=== PATIENT | female | born 1945 | race Caucasian/White ===

== ENCOUNTER → 2019-12-27 11:46 | Outpatient (CLI) | payer MEDICARE, SELFPAY ==
[2017-06-02 14:13] VITALS: BMI 34.2
--- NOTE | 2019-12-27 12:00 | RAD_ITS ---
STUDY: X-RAY CHEST REASON FOR EXAM: Female, 74 years old. Cough TECHNIQUE: PA and lateral views of the chest. COMPARISON: Comparison is made with prior study dated June 02, 2017. FINDINGS: Minimal increased markings at the lung bases suggestive of mild scarring. There is no demonstrated pleural abnormality. Normal size heart. Normal mediastinum and enrike. Normal visualized pulmonary arteries. There is atherosclerotic calcification of the aortic arch with tortuosity. There are diffuse degenerative changes of the visualized thoracic spine. Normal visualized ribs, clavicles, and shoulders. There is no demonstrated abnormality of the visualized soft tissue structures of the upper abdomen. RAD/Chest PA and Lateral IMPRESSION: Mild scarring at the lung bases. Electronically Signed: Samy Bernardo, at 15:48 EDT , Service support ,
--- NOTE | 2019-12-27 12:00 | RAD_ITS ---
STUDY: X-RAY - ABDOMEN/PELVIS REASON FOR EXAM: Female, 74 years old. Mid abdomen pain TECHNIQUE: AP supine and upright views of the abdomen and pelvis. COMPARISON: None. FINDINGS: Normal visualized lung bases. There is an abundance of fecal material throughout the colon. There is no demonstrated free abdominal air. The visualized liver, spleen and kidneys are grossly normal in size and morphology. Normal soft tissue structures. There are diffuse degenerative changes of the visualized lumbar spine. RAD/Abd Inc Decub and/or Erect IMPRESSION: Large amount of fecal material is seen in the colon Electronically Signed: Samy Bernardo, at 15:45 EDT , Service support ,
== END ==
PROVIDERS: PCP Internal Medicine; Referring Provider Internal Medicine; Visit Provider Internal Medicine
DX: R05 Cough (principal); R10.84 Generalized abdominal pain
CPT/HCPCS: 71046; 74019

== ENCOUNTER → 2021-12-28 | Outpatient (CLI) | payer MEDICARE, SELFPAY ==
[2021-12-28 11:40] LABS: Absolute Lymphocyte Count 1.34 X10^3/uL (0.83-4.51); Absolute Neutrophil Count 3.6 X10^3/uL (2.0-7.7); Basophil# 0.03 X10^3/uL; Basophil% 0.5 % (0-1); Eosinophil# 0.31 X10^3/uL; Eosinophils% 5.3 % (0-5); Hemoglobin 9.9 g/dL (12.0-15.0); Lymphocyte # 1.34 X10^3/ul (0.83-4.51); Mean Corp Hgb Conc 31.9 g/dL (32-36); Mean Corpuscular Hgb 28.9 pg (27.0-32.0); Mean Corpuscular Volume 90.6 fL (81-99); Mean Platelet Vol. 9.7 fl (6.2-12.0); Monocyte# 0.54 X10^3/uL; Monocyte% 9.3 % (0-10); NRBC Flagged by Analyzer 0 % (0-5); Neutrophil # 3.59 X10^3/uL (2.7-7.7); Neutrophil % 61.6 % (47-70); Platelet Count 128 K/mm3 (150-450); RBC Distribution Width CV 13.4 % (11.6-14.6); RBC Distribution Width SD 44.3 fl (35.1-43.9); Red Blood Count 3.42 M/mm3 (4.2-5.4); White Blood Count 5.8 K/mm3 (4.4-11.0)
[2021-12-28 12:18] LABS: AST(SGOT) 28 U/L (15-37); Alanine Aminotransfer ALT/SGPT 27 U/L (13-56); Albumin, Serum 3.1 g/dL (3.2-5.0); Alkaline Phosphatase 61 U/L (45-117); Anion Gap 4 (5-15); BUN 34 mg/dL (7-18); BUN/Creat Ratio 15.7 RATIO (10-20); Bilirubin, Direct 0.09 mg/dL (0.00-0.30); Calcium,Total 11.7 mg/dL (8.5-10.1); Chloride 102 mmol/L (98-107); Cholesterol 200 mg/dL (200); Creatinine, Serum 2.16 mg/dL (0.55-1.02); EST Glomerular Filtration Rate 24 mL/min (>60); Est Glom Filt Rate - Afr Amer 29 mL/min (>60); Globulin 4.2 g/dL (2.2-4.2); Glucose 113 mg/dL (74-106); High Density Lipoprotein 47 mg/dL; Magnesium 1.5 mg/dL (1.6-2.6); Potassium 4.3 mmol/L (3.5-5.1); Protein, Total 7.3 g/dL (6.4-8.2); Sodium Level 139 mmol/L (136-145); Thyroid Stim Hormone (TSH) 6.59 uIU/mL (0.358-3.74); Triglycerides 112 mg/dL; Very Low Density Lipoprotein 22 mg/dL (5-40)
== END | disposition home or self-care (01) ==
LOC: LAB 09:56
PROVIDERS: PCP Internal Medicine; Referring Provider Internal Medicine Cardiovascular Disease; Visit Provider Internal Medicine Cardiovascular Disease
DX: I49.1 Atrial premature depolarization (principal); R06.02 Shortness of breath; E78.2 Mixed hyperlipidemia; I10 Essential (primary) hypertension
CPT/HCPCS: 36415; 80048; 80061; 80076; 83735; 84443; 85025

== ENCOUNTER → 2021-12-31 | Outpatient (CLI) | payer MEDICARE, SELFPAY ==
--- NOTE | 2021-12-31 11:58 | RAD_ITS ---
STUDY: X-RAY CHEST REASON FOR EXAM: Female, 76 years old. shortness of breath TECHNIQUE: PA and lateral COMPARISON: None. FINDINGS: The lungs are clear and expanded. There is no demonstrated pleural abnormality. Normal size heart. Normal mediastinum and enrike. Normal visualized pulmonary arteries. Normal visualized aortic arch and descending thoracic aorta. Normal visualized thoracic spine. Normal visualized ribs, clavicles, and shoulders. There is no demonstrated abnormality of the visualized soft tissue structures of the upper abdomen. RAD/Chest PA and Lateral IMPRESSION: Normal x-ray examination of the chest. Electronically Signed: Peter Ac MD at 2:39 EDT ,
== END | disposition home or self-care (01) ==
LOC: RAD 11:54
PROVIDERS: PCP Internal Medicine; Referring Provider Internal Medicine Cardiovascular Disease; Visit Provider Internal Medicine Cardiovascular Disease
DX: I49.1 Atrial premature depolarization (principal); E78.2 Mixed hyperlipidemia; I10 Essential (primary) hypertension; R06.02 Shortness of breath
CPT/HCPCS: 71046

== ENCOUNTER → 2022-01-21 | Outpatient (CLI) | payer MEDICARE, SELFPAY ==
--- NOTE | 2022-01-21 07:02 | ECHOD_ITS ---
Reason For Study: SOB Procedure This was a 2D Doppler, Color Flow transthoracic echocardiogram. The study was technically difficult. Exam performed in department. Left Ventricle Normal LV size. Left ventricular systolic function is normal. The estimated ejection fraction is 60 %. Diastolic function is indeterminate. No regional wall motion abnormalities noted. Right Ventricle Normal RV size. Normal systolic function. Atria Normal left atrium. Normal right atrium. No doppler evidence for ASD. Mitral Valve There is no mitral annular calcification. Normal mitral valve. Trivial mitral valve insufficiency. Tricuspid Valve Normal tricuspid valve. Trivial tricuspid valve insufficiency. Unable to estimate RV systolic pressure/pulmonary artery pressure due to technically difficult study. Aortic Valve Trisinus/trileaflet aortic valve. Normal aortic valve. Pulmonic Valve The pulmonic valve is not well visualized. Great Vessels Normal sized aortic root. Pericardium/Pleural Trivial pericardial effusion. There are no echocardiographic indications of cardiac tamponade. Epicardial fat. MMode/2D Measurements & Calculations Ao root diam: 3.4 cm LVAd ap4: 27.0 cm2 SV(MOD-sp4): 45.3 ml LVLd ap4: 7.4 cm EDV(MOD-sp4): 83.3 ml EDV(sp4-el): 83.4 ml LVAs ap4: 15.2 cm2 LVLs ap4: 5.5 cm ESV(MOD-sp4): 37.9 ml ESV(sp4-el): 35.3 ml EF(MOD-sp4): 54.5 % EF(sp4-el): 57.7 % SV(sp4-el): 48.1 ml LA dimension(2D): 4.0 cm RA A4 area: 17.2 cm2 Doppler Measurements & Calculations MV E max leighton: 79.3 cm/sec Lat Peak E' Leighton: 5.8 cm/sec Med Peak E' Leighton: 4.8 cm/sec MV A max leighton: 91.1 cm/sec E/E' lat: 13.6 E/E' med: 16.4 MV E/A: 0.87 Ao V2 max: 118.5 cm/sec LV V1 max: 97.0 cm/sec PA V2 max: 100.2 cm/sec Ao max P.6 mmHg LV V1 max P.8 mmHg ECHO/Echo Complete Interpretation Summary The study was technically difficult. Left ventricular systolic function is normal. The estimated ejection fraction is 60 %. Trivial mitral valve insufficiency. Trivial tricuspid valve insufficiency. Trivial pericardial effusion. There are no echocardiographic indications of cardiac tamponade. Epicardial fat. Unable to estimate RV systolic pressure/pulmonary artery pressure due to techni luis e difficult study. Diastolic function is indeterminate. Ordering Physician: Luis Mcgraw Referring Physician: Luis Mcgraw Performed By: Sada Mondragon RCS
--- NOTE | 2022-01-21 10:15 | STRESSREP_ITS ---
Stress Test Report Date: 01-21-2022 Procedure: Pharmacologic stress nuclear imaging study Indications: Shortness of breath/dyspnea on exertion; CAD Consent: Per the patient Procedure: The patient underwent pharmacologic (Regadenoson 0.4mg ) evaluation with a peak heart rate of 75 beats per minute (51%predicted maximal heart rate) and a peak blood pressure of 140/74 mmHg. The baseline ECG demonstrated sinus bradycardia. The peak pharmacologic ECG demonstrated no obvious ECG changes. There were no cardiac dysrhythmias pretest, during pharmacologic infusion, or recovery. There was no complaint of chest discomfort during pharmacologic infusion or recovery. The examination was discontinued secondary to completion of protocol. Impression: 1. Pharmacologic (Regadenoson) evaluation 2. Peak pharmacologic ECG with no obvious ECG changes. 3. There were no cardiac dysrhythmias pretest, during pharmacologic infusion, or recovery. 4. Nuclear images pending Myocardial perfusion imaging study: Technique: The patient was injected with 11.9 millicuries of technetium 99m Cardiolite and subsequently rest SPECT Cardiolite nuclear imaging was obtained in the horizontal long, vertical long, and short axis views. The patient underwent pharmacologic (Regadenoson) evaluation with a peak heart rate of 75 beats per minute (51% percent predicted maximal heart rate) and a peak blood pressure of 140/74 mmHg. The patient was injected with 34.3 millicuries of technetium 99m Cardiolite and subsequently stress SPECT Cardiolite nuclear imaging was obtained in the horizontal long, vertical long, and short axis views. A gated Cardiolite study at peak stress was obtained. Interpretation: Rest and stress SPECT Cardiolite nuclear imaging status post realignment, normalization, and attenuation correction demonstrate status post stress of small area of subtle diminished tracer uptake in the mid inferior segments. There is end systolic thickening and brightening. The gated Cardiolite study demonstrates myocardial thickening and inward wall motion. The reported LVEF is 69%. Impression: 1. Rest and stress SPECT her nuclear imaging demonstrate myocardial perfusion changes potentially compatible with an area of myocardial ischemia in the mid inferior segments, however, an element of shifting soft tissue attenuation/artifact cannot necessarily be excluded. 2. The gated Cardiolite study reports an LVEF of 69%. This note was generated with [employer] software. It may contain incorrect words, spelling, and punctuation that were not noted in checking the note before signing.
== END | disposition home or self-care (01) ==
PROVIDERS: PCP Internal Medicine; Referring Provider Internal Medicine Cardiovascular Disease; Visit Provider Internal Medicine Cardiovascular Disease
DX: I49.1 Atrial premature depolarization (principal); R06.02 Shortness of breath; E78.2 Mixed hyperlipidemia; I10 Essential (primary) hypertension
CPT/HCPCS: 78452; 93017; 93306; A9500; A4216; J2785

== ENCOUNTER → 2022-02-09 | Outpatient (CLI) | payer MEDICARE, SELFPAY ==
--- NOTE | 2022-02-09 14:51 | PFTCOMP ---
COMPLETE PULMONARY FUNCTION TEST INTERPRETATION Brief HPI: Patient is a 76-year-old female, currently under the care of Dr. Segura, who presents to [facility] for complete pulmonary function tests secondary to diagnosis of chronic cough. Respiratory therapist reports good effort and reproducible results. Interpretation: Forced expiration spirometry shows no large airways obstructive ventilatory defect with an FEV1 of 90% predicted. There is no significant bronchodilator response by strict ATS criteria. Spirograms are of good quality and plateau normally. The respiratory flow volume loop shows a normal pattern. Lung volumes by body plethysmography show a decreased total lung capacity at 4.08 L, 76% predicted. All other lung volumes are reduced symmetrically. Diffusion capacity by carbon monoxide is decreased at 61% predicted. The airway resistance is elevated. No previous pulmonary function tests were available for review. Impression: Mild restrictive ventilatory defect with a disproportionate reduction in diffusion capacity
== END | disposition home or self-care (01) ==
LOC: PSN 09:46
PROVIDERS: PCP Internal Medicine; Visit Provider Internal Medicine
DX: R05.9 Cough, unspecified (principal)
CPT/HCPCS: 94060; 94726; 94729

== ENCOUNTER 2022-02-23 11:01 | Observation (INO) | payer MEDICARE, SELFPAY ==
[2022-02-05 14:25] LABS: Hematocrit 33.1 % (37-47); Hemoglobin 10.6 g/dL (12.0-15.0); Mean Corpuscular Volume 93.8 fL (81-99); Mean Platelet Vol. 9.5 fl (6.2-12.0); Platelet Count 167 K/mm3 (150-450); RBC Distribution Width SD 47.3 fl (35.1-43.9); Red Blood Count 3.53 M/mm3 (4.2-5.4)
[2022-02-05 14:33] LABS: International Normalized Ratio 1.2; Partial Thromboplast Time 24.4 Seconds (24.1-36.2); Prothrombin Time (Protime)PT. 14.6 SECONDS (11.7-14.9)
[2022-02-05 15:04] LABS: Anion Gap 4 (5-15); BUN 33 mg/dL (7-18); BUN/Creat Ratio 19.9 RATIO (10-20); Calcium,Total 11.5 mg/dL (8.5-10.1); Chloride 103 mmol/L (98-107); Creatinine, Serum 1.66 mg/dL (0.55-1.02); EST Glomerular Filtration Rate 32 mL/min (>60); Est Glom Filt Rate - Afr Amer 39 mL/min (>60); Glucose 107 mg/dL (74-106); Potassium 4.3 mmol/L (3.5-5.1); Sodium Level 139 mmol/L (136-145)
[2022-02-19 11:39] VITALS: BMI 33.1
--- NOTE | 2022-02-22 11:23 | HP.PCM_ITS ---
History and Physical Date of Admission: 02/23/22 [facility] [address] [place], [place] [address] OFFICE VISIT Date of Service:? 02/05/22 MR#: [id number] Acct: [id number] Name:ARNOLD RICHEY Rep #: [id number] : 1945 Provider: ?[address] Age/Sex:? 76/F [place] [facility] [place] Status: Signed HPI HPI History of Present Illness Surgical H&P: Yes Details: This is a 76-year-old white female who presents today for outpatient cardiovascular consultation based upon concerns of shortness of breath/dyspnea especially with exertional activity. On account of shortness of breath, she underwent an echocardiogram and stress test on 01/21/2022.? Her echocardiogram showed ejection fraction of 60%.? Her stress test showed changes potentially compatible with an area of myocardial ischemia in the mid inferior segments, however, an element of shifting soft tissue attenuation/artifact cannot necessarily be excluded. On account of stress test results and symptoms, she will proceed with a heart catheterization to assess further. She denies chest, arm, jaw, or neck discomfort.? She states her shortness of breath with exertion has worsened and is most noted prior to noon. This occurs suddenly. This lasts seconds. She denies symptoms of shortness of breath at rest, orthopnea, PND, or sudden weight gain. She continues with bilateral lower extremity edema for years and is not worsening. She states chronic cough since 2019 or 2019. She denies palpitations, lightheadedness, dizziness, near syncope, or syncopal episodes. She denies claudication issues. She denies fever or chills. She denies blood in urine, blood in stool, or epistaxis. She denies myalgia. She denies unexplainable fatigue. Her exercise tolerance is stable. Intake Vital Signs ? 02/05/2213:14 02/05/2213:22 HeightB 5 ft 7 in ? Weight: 206 lb ? BMI 32.2 ? BP 155/69 H 136/78 H Blood Pressure Location Lt brachial Rt brachial Position Sitting Sitting Respiration 16 ? Pulse 55 L ? Pulse Source Monitor ? Pulse Oximetry (%) 99 ? Oxygen Delivery Method room air ? Comment ? Manual Intake Visit Reasons:?UPDATE H&P (CATH 02/23) Allergies ciprofloxacin [From Cipro] Allergy (Verified 12/18/21 13:43) WEAK TENDONScortisone Allergy (Verified 12/18/21 13:43) Otheramoxicillin [From Augmentin] Adverse Reaction (Unknown, Verified 12/18/21 13:43) Yeast infection,Thrushclarithromycin [From Biaxin] Adverse Reaction (Unknown, Verified 12/18/21 13:43) strange dreamsclavulanic acid [From Augmentin] Adverse Reaction (Unknown, Verified 12/18/21 13:43) Yeast infection,Thrushlevofloxacin [From Levaquin] Adverse Reaction (Unknown, Verified 12/18/21 13:43) tendon AchesALL ANTIBIOTICS Allergy (Uncoded 12/18/21 13:43) BLISTERS Medications amitriptyline 25 mg tablet 25 mg PO QHS 12/15/21 [History Confirmed 02/05/22] clotrimazole-betamethasone 1 %-0.05 % topical cream 1 applic TOPICAL BID PRN 12/15/21 [History Confirmed 02/05/22] cyclobenzaprine 10 mg tablet 10 mg PO TID PRN 12/15/21 [History Confirmed 02/05/22] hydrochlorothiazide 25 mg tablet 25 mg PO DAILY 12/15/21 [History Confirmed 02/05/22] insulin lispro 100 unit/mL subcutaneous pen 1 sliding scale dose SUBCUT USEASDIRECTD 12/15/21 [History Confirmed 02/05/22] levothyroxine 125 mcg tablet 125 mcg PO DAILY 12/15/21 [History Confirmed 02/05/22] metformin 500 mg tablet 500 mg PO DAILY 12/15/21 [History Confirmed 02/05/22] mometasone 0.1 % topical solution 1 applic TOPICAL DAILY PRN 12/15/21 [History Confirmed 02/05/22] multivitamin 1 tab PO DAILY 12/15/21 [History Confirmed 02/05/22] propranolol 80 mg capsule,extended release 24 hr 80 mg PO DAILY 12/15/21 [History Confirmed 02/05/22] timolol 0.5 % eye drops 2 drp OPHTHALMIC (EYE) DAILY? ml 12/15/21 [History Confirmed 02/05/22] insulin detemir U-100 100 unit/mL (3 mL) subcutaneous pen 32 unit SUBCUT BID? ml 12/18/21 [History Confirmed 02/05/22] omeprazole 40 mg capsule,delayed release 40 mg PO DAILY PRN 12/18/21 [History Confirmed 02/05/22] aspirin 81 mg tablet,delayed release 81 mg PO QDAY #30 tab 02/05/22 [Rx Confirmed 02/05/22] meclizine 25 mg tablet 25 mg PO DAILY PRN 02/05/22 [History Confirmed 02/05/22] PFSH Medical History?(Updated 01/26/22 @ 11:45 by Christine Alicea) Abnormal stress test Essential hypertension Fatty liver Fibromyalgia history of palpitations Hypothyroidism Mixed hyperlipidemia Premature atrial contraction Type 2 diabetes mellitus Surgical History? History of cholecystectomy History of hand surgery History of hysterectomy History of sinus surgery History of tonsillectomy History of total right knee replacement Family History? Other CVA (cerebral vascular accident) Diabetes Thyroid disorder Social History? Smoking Status:? Never smoker alcohol intake:? never substance use type:? does not use caffeine:? Yes ROS Const Const: Negative for fatigue, weakness, body ache, fever(s) or chills ENT ENT: Negative for dizziness or Nosebleed/epistaxis Cardio Chest Pain: No Palpitations: No Edema: Bilateral Muscle aches with walking: None Resp Respiratory: Positive for SOB with activity and Cough; Negative for SOB at rest, SOB orthopnea\SOB lying down or paroxysmal nocturnal dyspnea GI GI: Negative nausea, vomiting blood/hematemesis, bright, red blood in stools or black,tarry stools : Negative for hematuria or frequent nighttime urination/ nocturia Musc Musc: Negative for muscle aches/ myalgia Skin Skin: Negative non-healing lesions or rash Neuro Neuro: Negative for dizziness, lightheadedness, near syncope, syncope, orthostatic symptoms or weakness Endo Endo: Negative for fatigue Allergy Allergy/Immunology: Negative for rash Cardiology Exam Const Appearance: cooperative, healthy appearing, comfortable and no acute distress Nutritional Appearance: well nourished and obese Orientation: alert, awake and oriented x3 Head Head: normal to inspection Ears: hearing grossly normal bilaterally Nose: external nose normal Face and Sinus: face symmetric Mouth: oral mucosae normal Eyes General: appearance normal, both eyes and all related structures Eyelids: eyelids normal EOM: EOM intact bilaterally Neck Neck: normal visual inspection and no JVD Carotids: normal carotid upstroke Chest Chest inspection: normal inspection of the chest, symmetric chest movement and normal respiratory effort; Negative cough Auscultation: Bilateral: Clear to Auscultation Cardio Rate: regular rate Rhythm: regular rhythm Heart sounds: S1 normal and S2 normal; Negative rub, gallop or murmur GI GI: normal to inspection and obese Neuro General: patient alert, patient awake, patient oriented x3 and CN's II-XI intact bilaterally Skin Skin: no rashes or lesions noted Extremities Pulses: Normal: Right Posterior Tibial Pulse, Left Posterior Tibial Pulse, Right Radial Pulse (Jaime Test completed) and Left Radial Pulse Lower Extremity Edema: Trace: Bilateral Psych Psychological: normal affect Supplemental Info Supplemental Information Echocardiogram from 01/21/2022: Interpretation Summary The study was technically difficult. ? Left ventricular systolic function is normal. The estimated ejection fraction is 60 %. Trivial mitral valve insufficiency. Trivial tricuspid valve insufficiency. Trivial pericardial effusion. There are no echocardiographic indications of cardiac tamponade. Epicardial fat. Unable to estimate RV systolic pressure/pulmonary artery pressure due to technically difficult study. Diastolic function is indeterminate. On?10-10-2012?she had a?transthoracic echocardiogram?performed.? At that time her LV was normal with respect to systolic function with an estimated LVEF 65% with trivial MR/TR and mild focal aortic valve thickening and findings compatible with an epicardial fat pad. Stress Test Report Date: 01-21-2022 Procedure: Pharmacologic stress nuclear imaging study Indications: Shortness of breath/dyspnea on exertion; CAD Consent: Per the patient Procedure: The patient underwent pharmacologic (Regadenoson 0.4mg ) evaluation with a peak heart rate of 75 beats per minute (51%predicted maximal heart rate) and a peak blood pressure of 140/74 mmHg. The baseline ECG demonstrated sinus bradycardia.? The peak pharmacologic ECG demonstrated no obvious ECG changes. There were no cardiac dysrhythmias pretest, during pharmacologic infusion, or recovery. There was no complaint of chest discomfort during pharmacologic infusion or recovery. The examination was discontinued secondary to completion of protocol. Impression: 1.? Pharmacologic (Regadenoson) evaluation 2.? Peak pharmacologic ECG with no obvious ECG changes. 3.? There were no cardiac dysrhythmias pretest, during pharmacologic infusion, or recovery. 4.? Nuclear images pending Myocardial perfusion imaging study: Technique: The patient was injected with 11.9 millicuries of technetium 99m Cardiolite and subsequently rest SPECT Cardiolite nuclear imaging was obtained in the horizontal long, vertical long, and short axis views. The patient underwent pharmacologic (Regadenoson) evaluation with a peak heart rate of 75 beats per minute (51% percent predicted maximal heart rate) and a peak blood pressure of 140/74 mmHg. The patient was injected with 34.3 millicuries of technetium 99m Cardiolite and subsequently stress SPECT Cardiolite nuclear imaging was obtained in the horizontal long, vertical long, and short axis views.? A gated Cardiolite study at peak stress was obtained. Interpretation: Rest and stress SPECT Cardiolite nuclear imaging status post realignment, normalization, and attenuation correction demonstrate status post stress of small area of subtle diminished tracer uptake in the mid inferior segments.? There is end systolic thickening and brightening.? The gated Cardiolite study demonstrates myocardial thickening and inward wall motion.? The reported LVEF is 69%. Impression: 1.? Rest and stress SPECT her nuclear imaging demonstrate myocardial perfusion changes potentially compatible with an area of myocardial ischemia in the mid inferior segments, however, an element of shifting soft tissue attenuation/artifact cannot necessarily be excluded. 2.? The gated Cardiolite study reports an LVEF of 69%. Also on?10-15-2012?she had a?pharmacologic stress nuclear imaging study ?performed.? At that time her myocardial perfusion images demonstrated changes which may represent shifting soft tissue/breast attenuation however an element of myocardial ischemia in the distal anterior and anteroapical segments could not be excluded.? Her gated LVEF was 70%. She also had a?24-hour Holter monitor performed on 10-10-2012.? At the time she was in sinus rhythm.? She had occasional PACs and an episode of ectopic atrial rhythm/tachycardia lasting approximately 6 beats in a rare PVC with no wide- complex runs. On?12-15-2012?she underwent a?diagnostic cardiac catheterization at [facility].? At that time she had elevated left ventricular end- diastolic pressure compatible decreased diastolic compliance, the left ventricle was normal with respect to systolic function with an estimated LVEF of 65%.? The LAD had proximal 25% stenosis.? The LCx had notation of being a large nondominant vessel and was angiographically normal.? The RCA was a moderate size dominant vessel which is angiographically normal.? The mitral valve had trace MR which was partially PVC induced. She had a?stress echocardiogram performed on 07-05-2017.? This was in the form of a dobutamine stress echocardiogram.? She had an isolated PVC during pharmacologic infusion.? There were no obvious ECG changes.? Her echocardiographic images were thought to be negative. Labs: ?? ? LDL Cholesterol 131 mg/dL (0-130)? H ?? ? HDL Cholesterol 47 mg/dL (40-) ?? ? Triglycerides 112 mg/dL (-199) ?? ? VLDL Cholesterol 22 mg/dL (5-40) Diagnostics: ?? ? Electrocardiogram ? Echocardiogram ? Stress Test NM ? Stress Test ? A ?? ? Chest X-Ray ? Pulmonary: ?? ? No Data to Display Assessment and Plan Assessment and Plan (1) SOB (shortness of breath): ?Status:?Acute ?Plan: Patient continues to acknowledge exertional shortness of breath.? Given her sy mptoms and abnormal stress test, she will proceed with heart catheterization.? Based on results, further recommendation will be made. Her heart catheterization in December 2012 showed LAD with 25% stenosis, LCx as angiographically normal, and RCA as angiographically normal.? She does have multiple risk factors for coronary artery disease, including diabetes, elevated LDL, and obesity. She does acknowledge upcoming appointment with sheet rock sander to evaluate pulmonary component as well as a chronic cough. (2) Premature atrial contraction: ?Status:?Acute ?Plan: She will continue propanolol therapy. (3) Mixed hyperlipidemia: ?Status:?Acute ?Plan: She is currently not on cholesterol-lowering medication.? She will continue risk factor and lifestyle modification.? Her lipid panel on 12/28/2021 showed total cholesterol: 200, LDL: 131, HDL: 47, and triglycerides: 112. Based on heart catheterization results, cholesterol-lowering medication may be further considered. (4) Essential hypertension: ?Status:?Acute ?Plan: Initially, her blood pressure was noted be elevated.? This was completed with a machine that required multiple attempts.? Manual blood pressure was improved and more consistent with previous blood pressures.? At time, she will do current medical therapy and we will continue to monitor. Plan Details Other Medications: ?New: ? aspirin (Adult Aspirin Regimen) 81 mg? PO QDAY 30 tabs 11RF ? ? Additional Comments: The above was discussed with the patient with her daughter present.? She was agreeable to this approach. Thank you for allowing me to participate in the care of your patient.? Please don't hesitate to call if any issues arise. This note was generated using a voice recognition system and there may be incorrect words, spelling or punctuation that were not noted when reviewing the office note prior to saving. Follow Up: ? ? Keep as is?(PFM) COVID (Procedure Consent) Procedure Criteria Procedure Criteria: Yes Elective?The surgeon/proceduralist and patient have discussed in detail the risk of exposure to and/or potential harm posed by the COVID-19 virus with having a surgery/procedure at this time versus the risk of? delaying the surgery/procedure. It is not possible to know either the risk of delaying the surgery or procedure or chance of getting an infection with perfect accuracy, but a joint decision was made between the patient and the surgeon/ proceduralist ?to proceed at this time with the scheduled surgery/procedure as indicated on the consent form. Coding Level of Care Code Off vis,est,level 3 Diagnoses SOB (shortness of breath)? R06.02 Premature atrial contraction? I49.1 Mixed hyperlipidemia? E78.2 Essential hypertension? I10 Coding Level of Care Code Off vis,est,level 3 Diagnoses SOB (shortness of breath)? R06.02 Premature atrial contraction? I49.1 Mixed hyperlipidemia? E78.2 Essential hypertension? I10 02/05/22 1334 <Electronically signed by Kole St NP PLATFORM MATERIAL HANDLER MANAGER-C> Date Kole St NP PLATFORM MATERIAL HANDLER MANAGER-C Cosigner Signature: Date (if applicable) CC:? Dr. Meghana Segura, DO ~ Assessment & Plan Addt'l Comments I have re-examined the patient. There are no clinical changes since date of exam This note was generated using a voice recognition system and there may be incorrect words, spelling or punctuation that were not noted when reviewing the office note prior to saving.
[2022-02-22 13:34] LABS: Anion Gap 3 (5-15); BUN 28 mg/dL (7-18); Calcium,Total 11.5 mg/dL (8.5-10.1); Chloride 103 mmol/L (98-107); Creatinine, Serum 1.47 mg/dL (0.55-1.02); EST Glomerular Filtration Rate 37 mL/min (>60); Est Glom Filt Rate - Afr Amer 45 mL/min (>60); Estimated Creatinine Clearance 32.65 ml/min; Glucose 164 mg/dL (74-106); Potassium 4.2 mmol/L (3.5-5.1); Sodium Level 139 mmol/L (136-145)
[2022-02-23] VITALS (22 sets, daily range): BP systolic 116–163; BP diastolic 48–93; PULSE 50–62; RESP 14–18; TEMP 36.4–36.8; O2SAT 57–100; BMI 33.1
--- NOTE | 2022-02-23 11:29 | PCI.CARDCATH ---
PCI Cardiac Cath Report PCI Report: PCI cardiac cath report; 1. Successful with GI from mid RCA 75%, with predilatation using 2 x 12 mm emerge MR balloon, followed by placement of drug-eluting stent/YIN/Orsiro [place] 2.75 x 15 mm With reduction of stenosis to 0% and maintenance of DONN-3 flow 2. Placement of TR band to close the right radial artery arteriotomy site. Preprocedure diagnosis; 76-year-old patient underwent cardiac catheterization by her primary blanket folder Dr. Mcgraw Patient had symptoms of shortness of breath dyspnea on exertion And she underwent evaluation by echocardiogram and stress test Nuclear stress test showed evidence of reversible myocardial ischemia in the mid inferior segment And echocardiographic evaluation showed LV function preserved with no significant valvular abnormality. Based on her clinical presentation she underwent cardiac catheterization today Which revealed diffuse coronary atherosclerosis involving the left coronary system mainly the mid and distal left anterior descending artery as well as the sidebranch which is a diagonal branch which is nonobstructive Noted also she had nonobstructive atherosclerosis of large OM1 branch left main is short RCA dominant with a lesion involving the mid RCA of around 75% stenosis and diffuse atherosclerosis with nonobstructive disease involving the distal RCA prior to the bifurcation of the posterolateral and RPDA. Consent; Risk and benefit of the procedure explained detail to patient elected to proceed informed consent obtained. Interventional equipment and catheters; 1. 6 [place] JR4 guide catheter 2. 0.014 run-through extra floppy 180 cm straight guidewire 3. 0.035 to 60 cm J exchange wire 4. 2 x 12 mm emerge MR balloon 5. 2.75 x 15 mm drug-eluting stent/Orsiro-[place] Medication used in the Mathematics Improvement Teacher 1. Brilinta 180 mg 2. Patient is given aspirin 3. Heparin IV. 4. ACT level acceptable Procedure in detail; Under fluoroscopic guidance we will proceed with the guide catheter 6 [place] JR4 advanced sending aorta cannulated the right coronary artery without difficulty Following this we will proceed with guidewire run-through across the lesion in the mid RCA then we followed by predilatation using 2 x 12 mm balloon followed by placement of drug-eluting stent 2.75 x 15 mm Up to 16 LEE. Angiographic views obtained in [place] and PATEL cranial views showed no evidence of dissection with a DONN-3 flow and angiographically good expansion of the stent. Following this all catheter removed Hemostasis maintained with a TR band to the right radial artery arteriotomy site. Conclusion and recommendations; 1. Patient will continue on DAPT/Brilinta and aspirin for 1 year 2. Patient will start on cardiac rehab program phase 1 3. Patient will follow up with the primary blanket folder Dr. Mcgraw for continuation of cardiac care and medical treatment. No complication in the Mathematics Improvement Teacher Rachna Holman MD,[facility] [place]
--- NOTE | 2022-02-23 12:08 | EKG12_ITS ---
Test Reason : POSTPCI Blood Pressure : / mmHG Vent. Rate : 051 BPM Atrial Rate : 357 BPM P-R Int : 000 ms QRS Dur : 080 ms QT Int : 424 ms P-R-T Axes : 000 -37 -06 degrees QTc Int : 390 ms Atrial fibrillation Left axis deviation Nonspecific ST and T wave abnormality Abnormal ECG Confirmed by FABRIZIO RAPHAEL, LUIS ([id number]), magazine editor OSCAR RUSSO ([id number]) on 02/26/2022 11:47:04 AM Referred By: Luis Dinh Confirmed By:LUIS DINH MD
[2022-02-23] MEDS: 0.9% Normal Saline 1,000 ML 75 ML IV (12:15)
[2022-02-23] MEDS: 0.9% Saline Lock 10 ML Syringe IV (12:16)
--- NOTE | 2022-02-23 13:55 | CL.D_ITS ---
Patient Name: ARNOLD ANDINO Study Date: 02/23/2022 Performing: Luis Mcgraw MD Ht: 67 inches 170 cm : 1945 Wt: 211.9 lbs 96 kg Age: 76 Gender: female BSA: 2.07 PROCEDURE(S) PERFORMED DC02-(10550)LHC/COR IC12-(04105/C9600)YIN W/WO PTCA, SINGLE CORONARY ARTERY CLINICAL PROFILE AND INDICATIONS Indications: Suspected CAD Heart Failure: None Stress/Imaging Date: 01/21/2022 Angina Classification Anginal Classification w/in 2 Weeks: Anginal Equivalent Dyspnea CAD Presentations: Other: dyspnea on exertion CONCLUSIONS [place] Multivessel CAD RECOMMENDATIONS Risk factor modification Medical therapy Referred for immediate PCI DESCRIPTION OF PROCEDURE The patient arrived to the procedure lab. The risks and benefits of the procedure as well as a full d escription of our services here and current unavailability of surgical backup were fully explained to the patient and/or their significant other prior to the catheterization. The Timeout was completed, verifying the correct patient and procedure. The patient's procedural site was prepped and draped in the usual fashion. Local anesthetic was given subcutaneously to right radial region with Lidocaine 2% . Using a modified Seldinger technique, arterial access was obtained via the right radial artery, a 6 Fr sheath was inserted. Left Coronary Artery selective angiography was performed in multiple views u sing a [address] Right Coronary Artery selective angiography was then performed in mu ltiple views using a [address] catheter[address] LV to AO pullback pressures were then recorded.The art erial sheath was pulled and a TR Band was applied for hemostasis CORONARY ANGIOGRAPHY DOMINANCE: Right Dominant LEFT HEART ASSESSMENT Left Ventricular Ejection Fraction: Not assessed Elevated Left Ventricular End Diastolic Pressure LVEDP: 28 mmHg LEFT MAIN: short bifurcating vessel, Angiographically normal LEFT ANTERIOR DESCENDING ARTERY: PROX LAD: 25 % Stenosis MID LAD: 25 % Stenosis, 25 % Stenosis DIAGONAL 1: Proximal - small caliber vessel: 75 % Stenosis CIRCUMFLEX ARTERY: MID CIRC: 10 - 25 % Stenosis RIGHT CORONARY ARTERY: Mild luminal irregularities MID RCA: 85 % Stenosis DISTAL RCA: 25 % Stenosis COMPLICATIONS No Complications PROCEDURE MEDICATIONS Fentanyl 50 mcg IV Versed 1 mg IV Oxygen: 2 L/min via nasal cannula Brilinta 180 mg PO @ 02/23/2022 10:49:10 Heparin 6000 unit(s) IV 02/23/2022 11:00:04 Heparin 2000 unit(s) IV 02/23/2022 11:17:53 SUMMARY OF HEMODYNAMIC DATA Time AIR REST ECG 08:54:12 ECG 09:57:56 Art 187/63 (104) 10:19:58 AO 142/67 (96) SA 10:31:27 LV 167/-4, 20 10:41:15 LVp 170/-6, 28 10:41:19 LV 171/-6, 28 10:41:23 AOp 165/63 (102) 10:41:26 Signed By Luis Mcgraw MD On 02/23/2022 13:54:17 Luis Mcgraw MD
--- NOTE | 2022-02-23 13:55 | PCM.PN.CARD ---
Subjective Subjective The patient presented for outpatient diagnostic cardiac catheterization which subsequently resulted in RCA PTCA/YIN. She was subsequently transferred to the PCU for further evaluation and care. At the present time in the PCU she appears to be resting comfortably. Objective Data Vital Signs: Vital Signs Temp Pulse Resp BP Pulse Ox 98.2 F 55 L 18 126/57 H 100 02/23/22 13:30 02/23/22 13:30 02/23/22 13:30 02/23/22 13:30 02/23/22 13:30 Oxygen Delivery Method Room Air Weight: 211 lb 9.6 oz Body Mass Index (BMI) 33.1 Intake & Output: Intake and Output for Last 24 Hours 02/21/22 02/22/22 02/23/22 23:59 23:59 23:59 Intake Total 100 / 100 Balance 100 / 100 Lab / Micro Data Result Diagrams: 02/05/22 13:33 02/22/22 12:19 Cardiology Labs/Tests Rhythm: Sinus rhythm; 2 brief episodes of a somewhat irregular wide-complex tachycardia appearing suspicious for artifact EKG: Sinus versus ectopic atrial rhythm ECHO: 01-21-2022 Interpretation Summary The study was technically difficult. ? Left ventricular systolic function is normal. The estimated ejection fraction is 60 %. Trivial mitral valve insufficiency. Trivial tricuspid valve insufficiency. Trivial pericardial effusion. There are no echocardiographic indications of cardiac tamponade. Epicardial fat. Unable to estimate RV systolic pressure/pulmonary artery pressure due to technically difficult study. Diastolic function is indeterminate. Stress Test: Stress Test Report Date: 01-21-2022 Procedure: Pharmacologic stress nuclear imaging study? Indications: Shortness of breath/dyspnea on exertion; CAD Consent: Per the patient Procedure: The patient underwent pharmacologic (Regadenoson 0.4mg ) evaluation with a peak heart rate of 75 beats per minute (51%predicted maximal heart rate) and a peak blood pressure of 140/74 mmHg. The baseline ECG demonstrated sinus bradycardia.? The peak pharmacologic ECG demonstrated no obvious ECG changes. There were no cardiac dysrhythmias pretest, during pharmacologic infusion, or recovery. There was no complaint of chest discomfort during pharmacologic infusion or recovery. The examination was discontinued secondary to completion of protocol. Impression: 1.? Pharmacologic (Regadenoson) evaluation 2.? Peak pharmacologic ECG with no obvious ECG changes. 3.? There were no cardiac dysrhythmias pretest, during pharmacologic infusion, or recovery. 4.? Nuclear images pending Myocardial perfusion imaging study: Technique: The patient was injected with 11.9 millicuries of technetium 99m Cardiolite and subsequently rest SPECT Cardiolite nuclear imaging was obtained in the horizontal long, vertical long, and short axis views. The patient underwent pharmacologic (Regadenoson) evaluation with a peak heart rate of 75 beats per minute (51% percent predicted maximal heart rate) and a peak blood pressure of 140/74 mmHg. The patient was injected with 34.3 millicuries of technetium 99m Cardiolite and subsequently stress SPECT Cardiolite nuclear imaging was obtained in the horizontal long, vertical long, and short axis views.? A gated Cardiolite study at peak stress was obtained. Interpretation: Rest and stress SPECT Cardiolite nuclear imaging status post realignment, normalization, and attenuation correction demonstrate status post stress of small area of subtle diminished tracer uptake in the mid inferior segments.? There is end systolic thickening and brightening.? The gated Cardiolite study demonstrates myocardial thickening and inward wall motion.? The reported LVEF is 69%. Impression: 1.? Rest and stress SPECT her nuclear imaging demonstrate myocardial perfusion changes potentially compatible with an area of myocardial ischemia in the mid inferior segments, however, an element of shifting soft tissue attenuation/artifact cannot necessarily be excluded. 2.? The gated Cardiolite study reports an LVEF of 69%. Cardiac Cath: CONCLUSIONS [place] Multivessel CAD RECOMMENDATIONS Risk factor modification Medical therapy Referred for immediate PCI DESCRIPTION OF? PROCEDURE The patient arrived to the procedure lab. The risks and benefits of the procedure as well as a full description of our services here and current unavailability of surgical backup were fully explained to the patient and/or their significant other prior to the catheterization. The Timeout was completed, verifying the correct patient and procedure. The patient's procedural site was prepped and draped in the usual fashion. Local anesthetic was given subcutaneously to right radial region with Lidocaine 2%. Using a modified Seldinger technique, arterial access was obtained via the right radial artery, a 6Fr sheath was inserted.? Left Coronary Artery selective angiography was performed in multiple views using a 5 Fr. 4.0 [place] catheter. Right Coronary Artery selective angiography was then performed in multiple views using a 5 Fr. 4.0 [place] catheter. LV to AO pullback pressures were then recorded.The arterial sheath was pulled and a TR Band was applied for hemostasis CORONARY ANGIOGRAPHY DOMINANCE:? Right Dominant LEFT HEART ASSESSMENT Left Ventricular Ejection Fraction: Not assessed Elevated Left Ventricular End Diastolic Pressure LVEDP: 28 mmHg LEFT MAIN: short bifurcating vessel, Angiographically normal LEFT ANTERIOR DESCENDING ARTERY: PROX LAD: 25 % Stenosis MID LAD: 25 % Stenosis, 25 % Stenosis DIAGONAL 1: Proximal - small caliber vessel: 75 % Stenosis CIRCUMFLEX ARTERY: MID CIRC: 10 - 25 % Stenosis RIGHT CORONARY ARTERY: Mild luminal irregularities MID RCA: 85 % Stenosis DISTAL RCA: 25 % Stenosis PCI: PCI Cardiac Cath Report PCI Report: PCI cardiac cath report; 1.? Successful with GI from mid RCA 75%, with predilatation using 2 x 12 mm emerge MR balloon, followed by placement of drug-eluting stent/YIN/Orsiro [place] 2.75 x 15 mm With reduction of stenosis to 0% and maintenance of DONN-3 flow 2.? Placement of TR band to close the right radial artery arteriotomy site. Preprocedure diagnosis; 76-year-old patient underwent cardiac catheterization by her primary documentation engineer Dr. Mcgraw Patient had symptoms of shortness of breath dyspnea on exertion And she underwent evaluation by echocardiogram and stress test Nuclear stress test showed evidence of reversible myocardial ischemia in the mid inferior segment And echocardiographic evaluation showed LV function preserved with no significant valvular abnormality. Based on her clinical presentation she underwent cardiac catheterization today Which revealed diffuse coronary atherosclerosis involving the left coronary system mainly the mid and distal left anterior descending artery as well as the sidebranch which is a diagonal branch which is nonobstructive Noted also she had nonobstructive atherosclerosis of large OM1 branch left main is short RCA dominant with a lesion involving the mid RCA of around 75% stenosis and diffuse atherosclerosis with nonobstructive disease involving the distal RCA prior to the bifurcation of the posterolateral and RPDA. Consent; Risk and benefit of the procedure explained detail to patient elected to proceed informed consent obtained. Interventional equipment and catheters; 1.? 6 [place] JR4 guide catheter 2.? 0.014 run-through extra floppy 180 cm straight guidewire 3.? 0.035 to 60 cm J exchange wire 4.? 2 x 12 mm emerge MR balloon 5.? 2.75 x 15 mm drug-eluting stent/Orsiro-[place] Medication used in the Senior Quality Engineer 1.? Brilinta 180 mg 2.? Patient is given aspirin 3.? Heparin IV. 4.? ACT level acceptable Procedure in detail; Under fluoroscopic guidance we will proceed with the guide catheter 6 [place] JR4 advanced sending aorta cannulated the right coronary artery without difficulty Following this we will proceed with guidewire run-through across the lesion in the mid RCA then we followed by predilatation using 2 x 12 mm balloon followed by placement of drug-eluting stent 2.75 x 15 mm Up to 16 LEE. Angiographic views obtained in [place] and PATEL cranial views showed no evidence of dissection with a DONN-3 flow and angiographically good expansion of the stent. Following this all catheter removed Hemostasis maintained with a TR band to the right radial artery arteriotomy site. Conclusion and recommendations; 1.? Patient will continue on DAPT/Brilinta and aspirin for 1 year 2.? Patient will start on cardiac rehab program phase 1 3.? Patient will follow up with the primary documentation engineer Dr. Mcgraw for continuation of cardiac care and medical treatment. No complication in the Senior Quality Engineer Rachna Holman MD,[facility] [place] Physical Exam Const alert, oriented x3, no apparent distress and healthy appearing HEENT normocephalic, head/scalp atraumatic and hearing grossly normal bilaterally Eyes PERRL, EOMs intact bilaterally and conjunctivae normal Neck full ROM and no JVD Carotids: normal carotid upstroke Resp normal respiratory effort Cardio regular rate, regular rhythm, S1 normal heart sound and S2 normal heart sound GI normal to inspection, nondistended, normoactive bowel sounds Extremity no pedal edema Extremity Narrative: Right radial artery area: Pulses: 2+/4+; no bruit; no hematoma Skin no rashes or lesions noted Psych mental status grossly normal Assessment & Plan Assessment/Plan (1) Atherosclerotic heart disease of [place] coronary artery without angina pectoris: PLAN: The patient has a history of CAD. She has undergone reevaluation with diagnostic cardiac catheterization based upon her symptoms and her abnormal exercise tolerance test. This led to the diagnosis of progression of CAD especially in the RCA distribution. She subsequently underwent RCA PTCA/YIN. She will continue risk factor modification and medical management. (2) Presence of stent in coronary artery: PLAN: Again the patient underwent RCA PTCA/YIN. She appeared to have a good angiographic result. She will continue post procedure evaluation and care. She will continue medical management. (3) Premature atrial contraction: PLAN: The patient has a history of cardiac ectopy. Her post procedure cardiac rhythm strip demonstrated 2 brief episodes of an irregular wide-complex rhythm appearing suspicious for artifact. The patient appears to be symptomatically and hemodynamically stable at this time. She will continue her medical management and follow-up. (4) Mixed hyperlipidemia: PLAN: The patient, as she has been diagnosed with progression of CAD, will be initiated on lipid-lowering therapy with a statin. (5) Essential hypertension: PLAN: The patient will continue medical therapy with adjustment as needed. Addt'l Comments The above was discussed and reviewed with Dr. Holman of interventional cardiology, the patient, and the patient's daughter. This note was generated using a voice recognition system and there may be incorrect words, spelling or punctuation that were not noted when reviewing the office note prior to saving. Procedure Criteria Type of Procedure Procedure Type: Elective Elective Risks - COVID COVID Risk Discussion: The surgeon/proceduralist and patient have discussed in detail the risk of exposure to and/or potential harm posed by the COVID-19 virus with having a surgery/procedure at this time versus the risk of delaying the surgery/procedure. It is not possible to know either the risk of delaying the surgery or procedure or chance of getting an infection with perfect accuracy, but a joint decision was made between the patient and the surgeon/proceduralist to proceed at this time with the scheduled surgery/procedure as indicated on the consent form.
[2022-02-23] MEDS: Insulin Lispro 100 UNIT/ML INSULN.PEN SC ×2 (16:28→21:41)
[2022-02-23 17:10] LABS: Bedside Glucose 184 mg/dL (74-106)
[2022-02-23] MEDS: Atorvastatin Calcium 40 MG Tablet PO (21:44)
[2022-02-23] MEDS: Amitriptyline 25 MG Tablet PO (21:44)
[2022-02-23] MEDS: Timolol 0.5% 5ML OPTH.BTL 1 DRP EACH EYE (21:47)
[2022-02-24 01:16] LABS: Bedside Glucose 183 mg/dL (74-106)
[2022-02-24 02:00] VITALS: PULSE 55
[2022-02-24 03:20] VITALS: BP 143/59; PULSE 58; RESP 16; TEMP 35.8; O2SAT 99
[2022-02-24] MEDS: Levothyroxine 125 MCG Tablet PO (06:06)
[2022-02-24] MEDS: Insulin Lispro 100 UNIT/ML INSULN.PEN SC (06:09)
[2022-02-24 06:40] LABS: Bedside Glucose 169 mg/dL (74-106)
[2022-02-24 07:08] LABS: Absolute Neutrophil Count 4.8 X10^3/uL (2.0-7.7); Basophil# 0.02 X10^3/uL; Basophil% 0.3 % (0-1); Eosinophil# 0.26 X10^3/uL; Eosinophils% 3.9 % (0-5); Hematocrit 33.2 % (37-47); Hemoglobin 10.6 g/dL (12.0-15.0); Lymphocyte % 16.5 % (19-41); Mean Corp Hgb Conc 31.9 g/dL (32-36); Mean Corpuscular Volume 94.1 fL (81-99); Mean Platelet Vol. 9.1 fl (6.2-12.0); Monocyte# 0.49 X10^3/uL; Monocyte% 7.3 % (0-10); NRBC Flagged by Analyzer 0 % (0-5); Neutrophil # 4.78 X10^3/uL (2.7-7.7); Neutrophil % 71.6 % (47-70); Platelet Count 147 K/mm3 (150-450); RBC Distribution Width CV 13.7 % (11.6-14.6); RBC Distribution Width SD 47.1 fl (35.1-43.9); Red Blood Count 3.53 M/mm3 (4.2-5.4); White Blood Count 6.7 K/mm3 (4.4-11.0)
[2022-02-24 07:40] LABS: ALB/GLOB Ratio 0.7 RATIO (0.9-2.4); AST(SGOT) 21 U/L (15-37); Alanine Aminotransfer ALT/SGPT 27 U/L (13-56); Alkaline Phosphatase 61 U/L (45-117); Anion Gap 4 (5-15); BUN 26 mg/dL (7-18); BUN/Creat Ratio 17.1 RATIO (10-20); Calcium,Total 10.4 mg/dL (8.5-10.1); Chloride 102 mmol/L (98-107); Creatinine, Serum 1.52 mg/dL (0.55-1.02); EST Glomerular Filtration Rate 36 mL/min (>60); Est Glom Filt Rate - Afr Amer 43 mL/min (>60); Estimated Creatinine Clearance 31.58 ml/min; Globulin 4.3 g/dL (2.2-4.2); Glucose 168 mg/dL (74-106); Potassium 4.6 mmol/L (3.5-5.1); Protein, Total 7.3 g/dL (6.4-8.2); Sodium Level 137 mmol/L (136-145)
[2022-02-24 07:54] VITALS: PULSE 55
[2022-02-24] MEDS: Propranolol LA 80 MG Capsule PO (08:44)
[2022-02-24] MEDS: hydroCHLOROthiazide 25 MG Tablet PO (08:44)
[2022-02-24] MEDS: Aspirin E.C. 81 MG Tablet PO (08:44)
[2022-02-24] MEDS: Timolol 0.5% 5ML OPTH.BTL 1 DRP EACH EYE (08:44)
[2022-02-24 09:20] VITALS: BP 118/52; PULSE 56; RESP 16; TEMP 36.6; O2SAT 99
--- NOTE | 2022-02-24 09:57 | DCINST_ITS ---
Discharge Instructions Diet Discharge Diet: Low fat / Low cholesterol and 1800 Calorie Control Diet Activity Discharge Activity: May Not Drive (for 48 hours) and May Take a Tub Bath (in 7 days) Weight Bearing Status: - (avoid heavy exertional activity x 2 weeks) Dressing / Incision Call your doctor if your incision/area has: Continuous Slow Oozing, Sudden Increased Bleeding, Increased Pain/ Swelling, Increased Redness and Foul Smelling Discharge Call your doctor if you observe: Fever of 101 or Higher, Shortness of breath, Dizziness, Fainting spells, Swelling in the ankles, Chest pain, Increased palpitations (irregular heartbeat) and Uncontrolled pain Remove Dressing in: 1 day Cleanse incision/area with: Soap & Water Follow Up Care Please Follow Up With: Luis Mcgraw MD When: [facility] office to arrange outpatient cardiology follow up Test Results: Test results from this visit will be discussed in further detail at your follow- up appointment, if applicable. Discharge Plan Admission Admit Date/Time: 02/23/22 11:01 Primary Reason for Your Visit: CAD Attending Provider: Luis Mcrgaw Primary Care Provider: Meghana Segura Discharge Orders/Prescriptions Prescriptions: New atorvastatin 40 mg Tablet 40 mg PO QHS Qty: 90 3RF Brilinta 90 mg Tablet 90 mg PO BID Qty: 180 3RF aspirin 81 mg Tablet,Delayed Release (Dr/Ec) 81 mg PO BREAKFAST Qty: 90 3RF Continued levothyroxine [Levoxyl] 125 mcg tablet 125 mcg PO DAILY multivitamin Tablet 1 tab PO DAILY Inderal XL 80 mg capsule,extended release 24hr 80 mg PO DAILY insulin lispro [Humalog KwikPen Insulin] 100 unit/mL insulin pen 1 sliding scale dose subcut USEASDIRECTD amitriptyline 25 mg tablet 25 mg PO QHS timolol 0.5 % drops 2 drp ophthalmic (eye) DAILY mometasone 0.1 % solution 1 applic topical DAILY PRN (Reason: Rash) clotrimazole-betamethasone 1-0.05 % cream 1 applic topical BID PRN (Reason: Rash) Levemir FlexTouch U-100 Insuln 100 unit/mL (3 mL) insulin pen 34 unit subcut BID omeprazole 40 mg capsule,delayed release(DR/EC) 40 mg PO DAILY PRN (Reason: Acid Reflux) meclizine 25 mg tablet 25 mg PO DAILY PRN (Reason: Anxiety) metformin 500 mg tablet 500 mg PO DAILY Qty: 1 0RF Rx Instructions: Hold until 02/25/2022 then resume hydrochlorothiazide 25 mg tablet 12.5 mg PO DAILY Referrals / Follow Up: Meghana Segura DO [Primary Care Provider] - Luis Mcgraw MD [STAFF PHYSICIAN] -
--- NOTE | 2022-02-24 10:00 | EKG12_ITS ---
Test Reason : Blood Pressure : / mmHG Vent. Rate : 056 BPM Atrial Rate : 227 BPM P-R Int : 000 ms QRS Dur : 088 ms QT Int : 442 ms P-R-T Axes : 000 -39 007 degrees QTc Int : 426 ms Junctional rhythm Left axis deviation Nonspecific T wave abnormality Abnormal ECG Confirmed by FABRIZIO RAPHAEL, LUIS ([id number]), research editor OSCAR RUSSO ([id number]) on 02/26/2022 11:45:16 AM Referred By: Luis Dinh Confirmed By:LUIS DINH MD
--- NOTE | 2022-02-24 10:06 | DS.PCM_ITS ---
Providers Date of Admission: 02/23/22 Date of Discharge: 02/24/22 Primary Care Physician: Dr. Meghana Segura DO Reason For Visit: ABD STRESS DYPNEA Diagnosis Discharge Diagnosis (1) Atherosclerotic heart disease of [place] coronary artery without angina pectoris: Status: Acute Code(s): I25.10 - Atherosclerotic heart disease of [place] coronary artery without angina pectoris Plan: The patient has a history of CAD. She has undergone reevaluation with diagnostic cardiac catheterization based upon her symptoms and her abnormal exercise tolerance test. This led to the diagnosis of progression of CAD especially in the RCA distribution. She subsequently underwent RCA PTCA/YIN. She will continue risk factor modification and medical management. (2) Presence of stent in coronary artery: Status: Acute Code(s): Z95.5 - Presence of coronary angioplasty implant and graft Plan: Again the patient underwent RCA PTCA/YIN. She appeared to have a good angiographic result. She will continue post procedure evaluation and care. She will continue medical management. (3) Premature atrial contraction: Status: Acute Code(s): I49.1 - Atrial premature depolarization Plan: The patient has a history of cardiac ectopy. Her post procedure cardiac rhythm strip demonstrated 2 brief episodes of an irregular wide-complex rhythm appearing suspicious for artifact. The patient appears to be symptomatically and hemodynamically stable at this time. She will continue her medical management and follow-up. (4) Mixed hyperlipidemia: Status: Acute Code(s): E78.2 - Mixed hyperlipidemia Plan: The patient, as she has been diagnosed with progression of CAD, will be initiated on lipid-lowering therapy with a statin. (5) Essential hypertension: Status: Acute Code(s): I10 - Essential (primary) hypertension Plan: The patient will continue medical therapy with adjustment as needed. Medications at Discharge Home Medications amitriptyline 25 mg tablet 25 mg PO QHS 12/15/21 clotrimazole-betamethasone 1 %-0.05 % topical cream 1 applic topical BID PRN Rash 12/15/21 insulin lispro 100 unit/mL subcutaneous pen (Humalog KwikPen (U-100) Insulin) 1 sliding scale dose subcut USEASDIRECTD 12/15/21 levothyroxine 125 mcg tablet (Levoxyl) 125 mcg PO DAILY 12/15/21 mometasone 0.1 % topical solution 1 applic topical DAILY PRN Rash 12/15/21 multivitamin 1 tab PO DAILY 12/15/21 propranolol 80 mg capsule,extended release 24 hr (Inderal XL) 80 mg PO DAILY 12/15/21 timolol 0.5 % eye drops 2 drp ophthalmic (eye) DAILY 12/15/21 insulin detemir U-100 100 unit/mL (3 mL) subcutaneous pen (Levemir FlexTouch U- 100 Insulin) 34 unit subcut BID 12/18/21 omeprazole 40 mg capsule,delayed release 40 mg PO DAILY PRN Acid Reflux 12/18/21 meclizine 25 mg tablet 25 mg PO DAILY PRN Anxiety 02/05/22 hydrochlorothiazide 25 mg tablet 12.5 mg PO DAILY 02/09/22 aspirin 81 mg tablet,delayed release 81 mg PO BREAKFAST #90 tabs 02/24/22 atorvastatin 40 mg tablet 40 mg PO QHS #90 tabs 02/24/22 metformin 500 mg tablet 500 mg PO DAILY #1 TAB 02/24/22 ticagrelor 90 mg tablet (Brilinta) 90 mg PO BID #180 tabs 02/24/22 Hospital Course Operations None Procedures Cardiac catheterization and - (Intervention/PCI) Summary of Care Provided Minutes Spent on Discharge: 45 Hospital Course: The patient was admitted to [facility] for further evaluation of cardiovascular symptoms and an abnormal stress nuclear imaging study. The patient underwent diagnostic cardiac catheterization. The patient subsequently underwent RCA PTCA/YIN. The patient was monitored overnight in the hospital. She appeared to remain symptomatically and hemodynamically stable. She was n oted to have right radial artery area ecchymoses without obvious vascular compromise. The patient was noted to have sinus rhythm with rare PVCs with 2 episodes of a somewhat irregular nonsustained wide-complex tachycardia which appeared suspicious for artifact and not considered definitive for ventricular ectopy. On this day it was felt the patient was stable for release home for continued outpatient follow-up. Physical Exam Const alert, oriented x3, no apparent distress and healthy appearing HEENT normocephalic, head/scalp atraumatic and hearing grossly normal bilaterally Eyes PERRL, EOMs intact bilaterally and conjunctivae normal Neck full ROM and no JVD Carotids: normal carotid upstroke Resp normal respiratory effort Cardio regular rate, regular rhythm, S1 normal heart sound and S2 normal heart sound GI normal to inspection, nondistended, normoactive bowel sounds Extremity no pedal edema Extremity Narrative: Right radial artery area: Pulses: 2+/4+; no bruit; positive ecchymoses Skin no rashes or lesions noted Psych mental status grossly normal Weight / BMI Weight Weight: 211 lb 9.6 oz Body Mass Index (BMI) 33.1 ABG / Lab / Microbiology Data Result Diagrams: 02/24/22 06:47 02/24/22 06:47 Laboratory: Laboratory Results - last 24 hr 02/23/22 16:19: POC Glucose 184 H 02/23/22 21:39: POC Glucose 183 H 02/24/22 06:08: POC Glucose 169 H 02/24/22 06:47: WBC 6.7, RBC 3.53 L, Hgb 10.6 L, Hct 33.2 L, MCV 94.1, MCH 30.0, MCHC 31.9 L, RDW Std Deviation 47.1 H, RDW Coeff of Miriam 13.7, Plt Count 147 L, MPV 9.1, Immature Gran % (Auto) 0.400, Neut % (Auto) 71.6 H, Lymph % (Auto) 16.5 L, Nolan % (Auto) 7.3, Eos % (Auto) 3.9, Baso % (Auto) 0.3, Absolute Neuts (auto) 4.8, Absolute Lymphs (auto) 1.10, Nucleated RBC % 0 02/24/22 06:47: Sodium 137, Potassium 4.6, Chloride 102, Carbon Dioxide 31.0, Anion Gap 4 L, BUN 26 H, Creatinine 1.52 H, Estim Creat Clear Calc 31.58, Est GFR (MDRD) Af Amer 43 L, Est GFR (MDRD) Non-Af 36 L, BUN/Creatinine Ratio 17.1, Glucose 168 H, Calcium 10.4 H, Total Bilirubin 0.40, AST 21, ALT 27, Alkaline Phosphatase 61, Total Protein 7.3, Albumin 3.0 L, Globulin 4.3 H, Albumin/Globulin Ratio 0.7 L D/C Instructions Discharge Diet: Low fat / Low cholesterol and 1800 Calorie Control Diet Weight Bearing Status: - (avoid heavy exertional activity x 2 weeks) Call your doctor if your incision/area has: Continuous Slow Oozing, Sudden Increased Bleeding, Increased Pain/ Swelling, Increased Redness and Foul Smelling Discharge Call your doctor if you observe: Fever of 101 or Higher, Shortness of breath, Di zziness, Fainting spells, Swelling in the ankles, Chest pain, Increased palpitations (irregular heartbeat) and Uncontrolled pain Cleanse incision/area with: Soap & Water Please Follow Up With: Luis Mcgraw MD When: [facility] office to arrange outpatient cardiology follow up Meaningful Use Info Meaningful Use Diagnoses (Choose all that apply): None applicable Discharge Plan Admission Admit Date/Time: 02/23/22 11:01 Primary Reason for Your Visit: CAD Attending Provider: Luis Mcgraw Primary Care Provider: Meghana Segura Discharge Orders/Prescriptions Prescriptions: New atorvastatin 40 mg Tablet 40 mg PO QHS Qty: 90 3RF Brilinta 90 mg Tablet 90 mg PO BID Qty: 180 3RF aspirin 81 mg Tablet,Delayed Release (Dr/Ec) 81 mg PO BREAKFAST Qty: 90 3RF Continued levothyroxine [Levoxyl] 125 mcg tablet 125 mcg PO DAILY multivitamin Tablet 1 tab PO DAILY Inderal XL 80 mg capsule,extended release 24hr 80 mg PO DAILY insulin lispro [Humalog KwikPen Insulin] 100 unit/mL insulin pen 1 sliding scale dose subcut USEASDIRECTD amitriptyline 25 mg tablet 25 mg PO QHS timolol 0.5 % drops 2 drp ophthalmic (eye) DAILY mometasone 0.1 % solution 1 applic topical DAILY PRN (Reason: Rash) clotrimazole-betamethasone 1-0.05 % cream 1 applic topical BID PRN (Reason: Rash) Levemir FlexTouch U-100 Insuln 100 unit/mL (3 mL) insulin pen 34 unit subcut BID omeprazole 40 mg capsule,delayed release(DR/EC) 40 mg PO DAILY PRN (Reason: Acid Reflux) meclizine 25 mg tablet 25 mg PO DAILY PRN (Reason: Anxiety) metformin 500 mg tablet 500 mg PO DAILY Qty: 1 0RF Rx Instructions: Hold until 02/25/2022 then resume hydrochlorothiazide 25 mg tablet 12.5 mg PO DAILY Referrals / Follow Up: Meghana Segura DO [Primary Care Provider] - Luis Mcgraw MD [STAFF PHYSICIAN] -
--- NOTE | 2022-02-24 10:33 | CASEMGMT ---
Pt to be sent home on Brilinta at discharge and med e-scribed to [facility] pharmacy. Call to [facility] and [facility] co-pay is $135 for 90 day supply. Pt updated and provided Brilinta one month free trial card, voices understanding. Sandra MCMAHON CM
--- NOTE | 2022-02-24 11:57 | PHA.DC.MR ---
Pharmacy Service has performed discharge medication reconciliation for this patient. The patient's discharge medication list was reviewed for discrepancies and discrepancies were resolved. Medication education papers prepared, patient D/C'ed when I went to debt and budget counselor. Home Medications amitriptyline 25 mg tablet 25 mg PO QHS mental health 12/15/21 clotrimazole-betamethasone 1 %-0.05 % topical cream 1 applic topical BID PRN Rash 12/15/21 insulin lispro 100 unit/mL subcutaneous pen (Humalog KwikPen (U-100) Insulin) 1 sliding scale dose subcut USEASDIRECTD diabetes 12/15/21 levothyroxine 125 mcg tablet (Levoxyl) 125 mcg PO DAILY thyroid 12/15/21 mometasone 0.1 % topical solution 1 applic topical DAILY PRN Rash 12/15/21 multivitamin 1 tab PO DAILY vitamin 12/15/21 propranolol 80 mg capsule,extended release 24 hr (Inderal XL) 80 mg PO DAILY blood pressure 12/15/21 timolol 0.5 % eye drops 2 drp ophthalmic (eye) DAILY eye health 12/15/21 insulin detemir U-100 100 unit/mL (3 mL) subcutaneous pen (Levemir FlexTouch U-100 Insulin) 34 unit subcut BID diabetes 12/18/21 omeprazole 40 mg capsule,delayed release 40 mg PO DAILY PRN Acid Reflux 12/18/21 meclizine 25 mg tablet 25 mg PO DAILY PRN Anxiety 02/05/22 hydrochlorothiazide 25 mg tablet 12.5 mg PO DAILY diuretic 02/09/22 aspirin 81 mg tablet,delayed release 81 mg PO BREAKFAST #90 tabs 02/24/22 atorvastatin 40 mg tablet 40 mg PO QHS #90 tabs 02/24/22 metformin 500 mg tablet 500 mg PO DAILY #1 TAB 02/24/22 ticagrelor 90 mg tablet (Brilinta) 90 mg PO BID #180 tabs 02/24/22
--- NOTE | 2022-02-26 14:40 | CRPHASE1_ITS ---
Patient Communication PHII Cardiac Rehab Discussed with Patient:: Yes Guide to Cardiac Rehab Given to Patient:: Yes - Mailed to patient Cardiac Rehab Facility Choice List Given to Patient:: Yes - Mailed to patient Choice Program [facility] CR PHII:: Communication Given to CR Armament Repairer:: Rachna Holman Refer Phase II Cardiac Rehab:: Yes Sessions:: 36 sessions - 3 days/wk, 12 weeks Choice Letter Given to Patient:: Yes Guide to Cardiac Rehab Given by ICU Staff Prior to Discharge: Yes Guide to Cardiac Rehab Mailed to Patient by CR Staff:: Yes Patient Contacted Post Discharge by CR Staff:: Yes PHII Cardiac Rehab Referral:: [facility] Phase I Charge:: Level I - Education Cardiac Rehabilitation Info Cardiac Rehabilitation Program Information: Cardiac Rehabilitation is important for patients like you who are recovering from a heart problem. Cardiac rehabilitation programs are recognized as integral to the continued care of the patient with coronary heart disease. The cardiac rehabilitation program is designed to optimize a patient's physical, psychological, and social functioning. Health home care coordinator work in cardiac rehabilitation programs and assist you with getting the treatments you need to get stronger and healthier - like exercise, healthy eating habits, and medications. Cardiac rehabilitation has been show to help people with heart problems live longer and have better life enjoyment than people who do not go to cardiac rehabilitation. Please contact the Cardiac Rehabilitation Program at [facility] at in two weeks if you have not heard from them.
--- NOTE | 2022-02-26 14:41 | CRPH1.INSTRU ---
General Education CAD and cardiac anatomy and function:: Patient communicates acknowledgment, Needs reinforcement Explanation of diagnoses and procedures:: Patient communicates acknowledgment, Needs reinforcement Sign/Symptoms of HI:: Patient communicates acknowledgment, Needs reinforcement Antiplatelet therapy: Patient communicates acknowledgment, Needs reinforcement Proper use of NTG-SL: Patient communicates acknowledgment, Needs reinforcement Emergency procedures and activation of EMS: Patient communicates acknowledgment, Needs reinforcement Compliance of all prescribed medications: Patient communicates acknowledgment, Needs reinforcement Smoking Patient Nicotine/Smoking Risk Factors Are:: Non-smoker Dyslipidemia Patient Dyslipidemia Risk Factors Are:: Total Cholesterol, Triglycerides, HDL, LDL Recommendations Include:: Lipid profile not available Dyslipidemia Response Code:: Patient communicates acknowledgment, Needs reinforcement Overweight/Obesity Patient Overweight/Obesity Risk Factors Are:: Obesity - > or = 30 Recommendations Include:: Weight loss of 5-10%, Reduced calorie diet, Exercise 5-7 times/week Overweight/Obesity:: Patient communicates acknowledgment, Needs reinforcement Hypertension Recommendations Include:: BP <130/80 if diabetic, DASH dietary guidelines, Decrease/maintain normal body weight Hypertension:: Patient communicates acknowledgment, Needs reinforcement Diabetes Patient Diabetes Risk Factors Are:: Elevated blood sugars Recommendations Include:: Maintain fasting blood sugars 70-110 md/dL, Maintain HgbA1c of 6% or less, Monitor blood sugar as prescribed, Diabetic dietary guidelines, Decrease/maintain body weight Diabetes:: Patient communicates acknowledgment, Needs reinforcement Sedentary Patient Sedentary Risk Factors Are:: Lack of regular exercise Recommendations Include:: Benefits of regular exercise, Discussed home walking program, Monitored Outpatient Cardiac Rehab Sedentary Response Code:: Patient communicates acknowledgment, Needs reinforcement Stress Recommendations Include:: Identification of stressors, and assessment of coping skills, Stress management techniques Stress Response Code:: Patient communicates acknowledgment, Needs reinforcement
== END 2022-02-24 10:10 | disposition home or self-care (01) ==
LOC: CLSP 13:39 → PCU 13:40
PROVIDERS: Admitting Provider Internal Medicine Cardiovascular Disease; PCP Internal Medicine; Referring Provider Internal Medicine Cardiovascular Disease; Visit Provider Internal Medicine Cardiovascular Disease
DX: I25.10 Atherosclerotic heart disease of native coronary artery without angina pectoris (principal); Z79.4 Long term (current) use of insulin; E11.9 Type 2 diabetes mellitus without complications; R06.02 Shortness of breath; I49.1 Atrial premature depolarization; R94.39 Abnormal result of other cardiovascular function study; E78.2 Mixed hyperlipidemia; Z79.02 Long term (current) use of antithrombotics/antiplatelets; Z79.82 Long term (current) use of aspirin; R60.0 Localized edema; R00.0 Tachycardia, unspecified; I10 Essential (primary) hypertension; Z79.899 Other long term (current) drug therapy; E03.9 Hypothyroidism, unspecified
CPT/HCPCS: 36415; 80048; 80053; 82962; 85025; 85027; 85610; 85730; 92928; 93005; 93454; 96360; 96361; 99152; 99153; 99218; C1874; J7030; J7040; Q9967; A4216; C1725; C1769; C1887; C1894; C9600; G0378

== ENCOUNTER → 2022-02-25 | Outpatient (CLI) | payer MEDICARE, SELFPAY ==
[2022-02-25 15:57] LABS: Anion Gap 6 (5-15); BUN 27 mg/dL (7-18); BUN/Creat Ratio 17.5 RATIO (10-20); Calcium,Total 10.3 mg/dL (8.5-10.1); Chloride 102 mmol/L (98-107); Creatinine, Serum 1.54 mg/dL (0.55-1.02); EST Glomerular Filtration Rate 35 mL/min (>60); Est Glom Filt Rate - Afr Amer 42 mL/min (>60); Glucose 241 mg/dL (74-106); Potassium 4.4 mmol/L (3.5-5.1); Sodium Level 137 mmol/L (136-145)
== END | disposition home or self-care (01) ==
LOC: LAB 15:12
PROVIDERS: PCP Internal Medicine; Referring Provider Internal Medicine Cardiovascular Disease; Visit Provider Internal Medicine Cardiovascular Disease
DX: I25.10 Atherosclerotic heart disease of native coronary artery without angina pectoris (principal); I10 Essential (primary) hypertension; Z95.5 Presence of coronary angioplasty implant and graft
CPT/HCPCS: 36415; 80048

== ENCOUNTER → 2022-03-02 | Outpatient (CLI) | payer MEDICARE, SELFPAY ==
--- NOTE | 2022-03-02 11:26 | ADUUE_ITS ---
Reason For Study: Decreased radial pulse post cath 02/23/22 RIGHT Radial artery mid, 0.16 x 0.18 cm, 84.2 cm/sec. Radial artery distal, 0.21 x 0.22 cm, 58.2 cm/sec. Ulnar artery distal, 0.09 x 0.10 cm, 52.9 cm/sec. Radial and ulnar veins are compressible. No occlusion or pseudoaneurysm noted. Preliminary report to [facility]. /US Art Duplex Unilat UP Extrem Interpretation Summary Normal diameter and flow right radial and ulnar arteries. Patent and compressible right radial and ulnar veins Findings do not suggest occlusion or pseudoaneurysm or fistula. Ordering Physician: Luis Mcgraw Referring Physician: Meghana Segura M.D. Performed By: Yu Nolan RVT
== END | disposition home or self-care (01) ==
LOC: CVS 11:18
PROVIDERS: PCP Internal Medicine; Referring Provider Internal Medicine Cardiovascular Disease; Visit Provider Internal Medicine Cardiovascular Disease
DX: R09.89 Other specified symptoms and signs involving the circulatory and respiratory systems (principal); Z95.5 Presence of coronary angioplasty implant and graft
CPT/HCPCS: 93931

== ENCOUNTER → 2022-06-17 | Outpatient (CLI) | payer MEDICARE, SELFPAY ==
[2022-06-17 12:36] LABS: BUN 20 mg/dL (7-18); BUN/Creat Ratio 15.2 RATIO (10-20); Calcium,Total 11.1 mg/dL (8.5-10.1); Chloride 103 mmol/L (98-107); Creatinine, Serum 1.32 mg/dL (0.55-1.02); EST Glomerular Filtration Rate 42 mL/min (>60); Est Glom Filt Rate - Afr Amer 51 mL/min (>60); Glucose 52 mg/dL (74-106); Phosphorus 2.7 mg/dL (2.5-4.9); Potassium 4.3 mmol/L (3.5-5.1); Sodium Level 140 mmol/L (136-145)
[2022-06-17 12:42] LABS: Vitamin D,25 Hydroxy 86.5 ng/mL
[2022-06-17 13:23] LABS: PTHIN < 6.3 pg/mL (18.4-80.1)
== END | disposition home or self-care (01) ==
LOC: POLAB3 11:20
PROVIDERS: PCP Internal Medicine; Visit Provider Internal Medicine Nephrology
DX: N18.32 Chronic kidney disease, stage 3b (principal)
CPT/HCPCS: 36415; 80069; 82306; 83970

== ENCOUNTER → 2022-07-15 | Outpatient (CLI) | payer MEDICARE, SELFPAY ==
[2022-07-15 17:31] LABS: Anion Gap 5 (5-15); BUN 22 mg/dL (7-18); Calcium,Total 10.7 mg/dL (8.5-10.1); Chloride 102 mmol/L (98-107); Creatinine, Serum 1.22 mg/dL (0.55-1.02); EST Glomerular Filtration Rate 46 mL/min (>60); Est Glom Filt Rate - Afr Amer 55 mL/min (>60); Glucose 109 mg/dL (74-106); Potassium 4.2 mmol/L (3.5-5.1); Sodium Level 140 mmol/L (136-145)
[2022-07-15 17:37] LABS: Vitamin D,25 Hydroxy 84.2 ng/mL
[2022-07-21 16:10] LABS: Vitamin D 1,25-Dihydroxy 48.6 pg/mL (24.8-81.5)
== END | disposition home or self-care (01) ==
LOC: POLAB3 13:47
PROVIDERS: PCP Internal Medicine; Visit Provider Internal Medicine Nephrology
DX: E83.52 Hypercalcemia (principal)
CPT/HCPCS: 36415; 80048; 82306; 82652

== ENCOUNTER → 2022-09-30 | Outpatient (CLI) | payer OTHER, SELFPAY | END | disposition home or self-care (01) | LOC: LAB 12:13 | PROVIDERS: PCP Internal Medicine; Visit Provider Internal Medicine Nephrology | DX: N18.32 Chronic kidney disease, stage 3b (principal) ==

== ENCOUNTER → 2022-10-04 | Outpatient (CLI) | payer OTHER, SELFPAY ==
[2022-10-04 16:11] LABS: BUN 26 mg/dL (7-18); BUN/Creat Ratio 20.6 RATIO (10-20); Calcium,Total 9.9 mg/dL (8.5-10.1); Creatinine, Serum 1.26 mg/dL (0.55-1.02); EST Glomerular Filtration Rate 44 mL/min (>60); Est Glom Filt Rate - Afr Amer 53 mL/min (>60); Glucose 190 mg/dL (74-106); Phosphorus 2.9 mg/dL (2.5-4.9)
[2022-10-04 16:12] LABS: Chloride 102 mmol/L (98-107); Potassium 4.8 mmol/L (3.5-5.1); Sodium Level 139 mmol/L (136-145)
[2022-10-04 17:26] LABS: 24 Hour Urine Protein 150.1 mg/24HR (<150 MG/24HR); 24HR. UA Prot. Total Volume 1380 mL; 24Hr UA Prot. Collection Time 24.5 HOURS (24.0); Urine Protein (24 Hour) 11.1 mg/dL (<11.9)
[2022-10-04 17:29] LABS: Creat.Clear Total Volume 1380 mL; Creat.Clear.Collection Time 24.5 HOURS (24.0); Creatinine Clearance 35 ml/min (100-200); Creatinine Serum Creat 1.3 mg/dL (0.6-1.0); Creatinine Urine 47.1 mg/dL (NO RANGE EST.); EST Glomerular Filtration Rate 44 mL/min (>60); Est Glom Filt Rate - Afr Amer 53 mL/min (>60)
== END | disposition home or self-care (01) ==
LOC: LAB 14:53
PROVIDERS: PCP Internal Medicine; Referring Provider Internal Medicine Nephrology; Visit Provider Internal Medicine Nephrology
DX: N18.32 Chronic kidney disease, stage 3b (principal)
CPT/HCPCS: 36415; 80069; 81050; 82575; 84156

== ENCOUNTER → 2022-11-01 | Outpatient (CLI) | payer MEDICARE, SELFPAY ==
--- NOTE | 2022-11-01 10:37 | BI_ITS ---
MAMMOGRAPHY - BILATERAL SCREENING REASON FOR EXAM: Female, 77 years old. Routine annual screening examination. PERTINENT HISTORY: Non-contributory. TECHNIQUE: Digital bilateral breast augustus (3D mammographic acquisition) in the CC and MLO projections. 2-D mediolateral oblique (MLO) and craniocaudad (CC) views of both breasts were obtained. CAD: Full Field Digital Mammography with Computer Added Detection was performed. COMPARISON: Comparison is made with prior study dated 03/11/2010. FINDINGS: Breast Composition: The breasts are almost entirely fatty. There are no dominant masses or suspicious calcifications. No other significant abnormalities are identified. There has been no significant change since the prior study. BI/SCRN MAMM (CAD)W/AUGUSTUS BILAT IMPRESSION: Stable bilateral screening mammogram. Yearly follow-up mammogram recommended. (A) ASSESSMENT CATEGORY: BIRADS Category 1: Negative. A letter regarding these results will be sent to the patient by the facility within 30 days. Approximately 10% of breast cancers are not detected by mammography. A normal mammogram should not delay biopsy of a clinically suspicious abnormality. [id number] Electronically Signed: Samy Bernardo MD at 12:23 EST ,
== END | disposition home or self-care (01) ==
LOC: OPBI 10:35
PROVIDERS: PCP Internal Medicine; Visit Provider Internal Medicine
DX: Z12.31 Encounter for screening mammogram for malignant neoplasm of breast (principal)
CPT/HCPCS: 77063; 77067

== ENCOUNTER → 2023-02-03 | Outpatient (CLI) | payer MEDICARE, SELFPAY ==
[2023-02-03 12:32] LABS: Albumin, Serum 2.8 g/dL (3.2-5.0); BUN 22 mg/dL (7-18); BUN/Creat Ratio 19.3 RATIO (10-20); Calcium,Total 10.1 mg/dL (8.5-10.1); Chloride 105 mmol/L (98-107); Creatinine, Serum 1.14 mg/dL (0.55-1.02); EST Glomerular Filtration Rate 49 mL/min (>60); Est Glom Filt Rate - Afr Amer 60 mL/min (>60); Glucose 144 mg/dL (74-106); Phosphorus 3.1 mg/dL (2.5-4.9); Potassium 4.2 mmol/L (3.5-5.1); Sodium Level 138 mmol/L (136-145)
[2023-02-03 12:35] LABS: PTHIN 6.9 pg/mL (18.4-80.1)
[2023-02-03 12:39] LABS: Protein, Urine (Random) 9.9 mg/dL (<11.9); Protein:Creat Ratio 205 mg/g CRE (0-200)
== END | disposition home or self-care (01) ==
LOC: LAB 11:24
PROVIDERS: PCP Internal Medicine; Referring Provider Internal Medicine Nephrology; Visit Provider Internal Medicine Nephrology
DX: E11.22 Type 2 diabetes mellitus with diabetic chronic kidney disease (principal); N18.32 Chronic kidney disease, stage 3b
CPT/HCPCS: 36415; 80069; 82570; 83970; 84156

== ENCOUNTER → 2023-06-30 | Outpatient (CLI) | payer MEDICARE, SELFPAY ==
[2023-06-30 12:05] LABS: BUN 27 mg/dL (7-18); BUN/Creat Ratio 17.1 RATIO (10-20); Calcium,Total 9.6 mg/dL (8.5-10.1); Chloride 103 mmol/L (98-107); Creatinine, Serum 1.58 mg/dL (0.55-1.02); EST Glomerular Filtration Rate 34 mL/min (>60); Est Glom Filt Rate - Afr Amer 41 mL/min (>60); Glucose 224 mg/dL (74-106); Phosphorus 2.8 mg/dL (2.5-4.9); Potassium 3.9 mmol/L (3.5-5.1); Protein, Urine (Random) 11.8 mg/dL (<11.9); Protein:Creat Ratio 147 mg/g CRE (0-200); Sodium Level 138 mmol/L (136-145)
== END | disposition home or self-care (01) ==
LOC: POLAB3 11:30
PROVIDERS: PCP Internal Medicine; Visit Provider Internal Medicine Nephrology
DX: N18.32 Chronic kidney disease, stage 3b (principal); E11.22 Type 2 diabetes mellitus with diabetic chronic kidney disease
CPT/HCPCS: 36415; 80069; 82570; 84156

== ENCOUNTER → 2023-08-04 | Outpatient (CLI) | payer MEDICARE, SELFPAY ==
[2023-08-04 13:29] LABS: BUN 36 mg/dL (7-18); BUN/Creat Ratio 20.2 RATIO (10-20); Calcium,Total 11.3 mg/dL (8.5-10.1); Chloride 103 mmol/L (98-107); Creatinine, Serum 1.78 mg/dL (0.55-1.02); EST Glomerular Filtration Rate 29 mL/min (>60); Est Glom Filt Rate - Afr Amer 36 mL/min (>60); Glucose 225 mg/dL (74-106); Phosphorus 3.4 mg/dL (2.5-4.9); Potassium 4.3 mmol/L (3.5-5.1); Sodium Level 138 mmol/L (136-145)
[2023-08-04 13:56] LABS: Protein:Creat Ratio 175 mg/g CRE (0-200)
== END | disposition home or self-care (01) ==
LOC: LAB.FUTURE 11:21
PROVIDERS: PCP Internal Medicine; Visit Provider Internal Medicine Nephrology
DX: N17.9 Acute kidney failure, unspecified (principal); E11.22 Type 2 diabetes mellitus with diabetic chronic kidney disease; N18.32 Chronic kidney disease, stage 3b
CPT/HCPCS: 36415; 80069; 82570; 84156

== ENCOUNTER → 2023-08-11 | Outpatient (CLI) | payer MEDICARE, SELFPAY ==
[2023-08-11 11:38] LABS: Albumin, Serum 3.2 g/dL (3.2-5.0); BUN 26 mg/dL (7-18); BUN/Creat Ratio 15.5 RATIO (10-20); Calcium,Total 10.9 mg/dL (8.5-10.1); Chloride 101 mmol/L (98-107); Creatinine, Serum 1.68 mg/dL (0.55-1.02); EST Glomerular Filtration Rate 32 mL/min (>60); Est Glom Filt Rate - Afr Amer 38 mL/min (>60); Glucose 245 mg/dL (74-106); Phosphorus 2.1 mg/dL (2.5-4.9); Potassium 4.1 mmol/L (3.5-5.1); Sodium Level 138 mmol/L (136-145)
== END | disposition home or self-care (01) ==
LOC: POLAB3 10:41
PROVIDERS: PCP Internal Medicine; Visit Provider Internal Medicine Nephrology
DX: N17.9 Acute kidney failure, unspecified (principal)
CPT/HCPCS: 36415; 80069

== ENCOUNTER → 2023-12-15 | Outpatient (CLI) | payer MEDICARE, SELFPAY ==
[2023-12-15 12:56] LABS: Albumin, Serum 3.1 g/dL (3.2-5.0); BUN 20 mg/dL (7-18); BUN/Creat Ratio 15.3 RATIO (10-20); Calcium,Total 11.8 mg/dL (8.5-10.1); Chloride 106 mmol/L (98-107); Creatinine, Serum 1.31 mg/dL (0.55-1.02); EST Glomerular Filtration Rate 42 mL/min (>60); Est Glom Filt Rate - Afr Amer 51 mL/min (>60); Glucose 89 mg/dL (74-106); Phosphorus 2.6 mg/dL (2.5-4.9); Sodium Level 140 mmol/L (136-145)
[2023-12-15 13:10] LABS: Microalbumin,Random Urine 25.2 mg/L (NO RANGE EST.); Microalbumin:Creatinine Ratio 60.4 mg/g CRE (<30 mg/g CRE)
== END | disposition home or self-care (01) ==
LOC: POLAB3 11:55
PROVIDERS: PCP Internal Medicine; Visit Provider Internal Medicine Nephrology
DX: N17.9 Acute kidney failure, unspecified (principal); E11.22 Type 2 diabetes mellitus with diabetic chronic kidney disease; N18.32 Chronic kidney disease, stage 3b
CPT/HCPCS: 36415; 80069; 82043; 82570

== ENCOUNTER → 2024-02-06 | Outpatient (CLI) | payer MEDICARE, SELFPAY | END | disposition home or self-care (01) | LOC: PSN 11:57 | PROVIDERS: PCP Internal Medicine; Referring Provider Physician Assistant Medical; Visit Provider Physician Assistant Medical | DX: R42 Dizziness and giddiness (principal); I47.20 Ventricular tachycardia, unspecified | CPT/HCPCS: 93225; 93226 ==

== ENCOUNTER → 2024-07-05 | Outpatient (CLI) | payer MEDICARE, SELFPAY ==
[2024-07-05 14:18] LABS: Albumin, Serum 3.1 g/dL (3.2-5.0); BUN 27 mg/dL (7-18); BUN/Creat Ratio 19.9 RATIO (10-20); Calcium,Total 10.8 mg/dL (8.5-10.1); Chloride 105 mmol/L (98-107); Creatinine, Serum 1.36 mg/dL (0.55-1.02); EST Glomerular Filtration Rate 40 mL/min (>60); Est Glom Filt Rate - Afr Amer 49 mL/min (>60); Glucose 96 mg/dL (74-106); Phosphorus 2.8 mg/dL (2.5-4.9); Potassium 4.3 mmol/L (3.5-5.1); Sodium Level 140 mmol/L (136-145)
[2024-07-05 14:51] LABS: Microalbumin,Random Urine 25.5 mg/L (NO RANGE EST.); Microalbumin:Creatinine Ratio 54.7 mg/g CRE (<30 mg/g CRE)
== END | disposition home or self-care (01) ==
LOC: POLAB3 13:21
PROVIDERS: PCP Internal Medicine; Visit Provider Internal Medicine Nephrology
DX: N18.32 Chronic kidney disease, stage 3b (principal); E11.22 Type 2 diabetes mellitus with diabetic chronic kidney disease; E67.8 Other specified hyperalimentation
CPT/HCPCS: 36415; 80069; 82043; 82570

== ENCOUNTER → 2025-01-10 | Outpatient (CLI) | payer MEDICARE, SELFPAY ==
--- NOTE | 2025-01-10 13:11 | CT_ITS ---
PROCEDURE: SINUS/FACIAL BONE REASON FOR EXAM: SINUSITIS TECHNIQUE: CT of the paranasal sinuses without contrast. Coronal and Sagittal reconstruction series were provided. One or more dose reduction techniques were used (e.g., Automated exposure control, adjustment of the mA and/or kV according to patient size, use of iterative reconstruction technique). COMPARISON: None. FINDINGS: Note is made of hyperostosis frontalis interna. Bilateral lens implants are noted. No orbital pathology is seen. The paranasal sinuses appear clear throughout. Mastoid air cells appear clear. Bilateral ostia are widely patent. CT/Sinus/Facial Bone IMPRESSION: Paranasal sinuses appear clear throughout. Reading Location: [place] [id number]
== END | disposition home or self-care (01) ==
LOC: CT 13:10
PROVIDERS: PCP Internal Medicine; Referring Provider Otolaryngology; Visit Provider Otolaryngology
DX: J32.8 Other chronic sinusitis (principal)
CPT/HCPCS: 70486

== ENCOUNTER → 2025-01-21 | Outpatient (CLI) | payer MEDICARE, SELFPAY ==
[2025-01-21 12:16] LABS: Absolute Lymphocyte Count 0.98 X10^3/uL (0.83-4.51); Absolute Neutrophil Count 3.2 X10^3/uL (2.0-7.7); Basophil# 0.04 X10^3/uL; Basophil% 0.8 % (0-1); Eosinophil# 0.39 X10^3/uL; Eosinophils% 7.6 % (0-5); Hematocrit 33.4 % (37-47); Hemoglobin 10.6 g/dL (12.0-15.0); Lymphocyte # 0.98 X10^3/ul (0.83-4.51); Lymphocyte % 19.1 % (19-41); Mean Corp Hgb Conc 31.7 g/dL (32-36); Mean Corpuscular Hgb 28.5 pg (27.0-32.0); Mean Corpuscular Volume 89.8 fL (81-99); Monocyte# 0.54 X10^3/uL; Monocyte% 10.5 % (0-10); NRBC Flagged by Analyzer 0 % (0-5); Neutrophil # 3.15 X10^3/uL (2.7-7.7); Neutrophil % 61.6 % (47-70); Platelet Count 146 K/mm3 (150-450); RBC Distribution Width CV 14.6 % (11.6-14.6); RBC Distribution Width SD 47.4 fl (35.1-43.9); Red Blood Count 3.72 M/mm3 (4.2-5.4); White Blood Count 5.1 K/mm3 (4.4-11.0)
[2025-01-21 12:46] LABS: D-Dimer Quantitative (DVT/PE) 0.96 FEU/ug/m (0.27-0.49)
[2025-01-21 13:00] LABS: ALB/GLOB Ratio 1.1 RATIO (0.9-2.4); AST(SGOT) 33 U/L (<=31); Alanine Aminotransfer ALT/SGPT 19 U/L (<=34); Albumin, Serum 3.7 g/dL (3.4-4.8); Alkaline Phosphatase 85 U/L (35-104); Anion Gap 9 (5-15); BUN 23 mg/dL (4-19); BUN/Creat Ratio 18.8 RATIO (10-20); Calcium,Total 10.6 mg/dL (7.6-11.0); Carbon Dioxide 28.7 mmol/L (21.0-32.0); Chloride 104 mmol/L (98-108); Cholesterol 104 mg/dL (<=200); Creatinine, Serum 1.21 mg/dL (0.70-1.20); EST Glomerular Filtration Rate 46 (>60); Globulin 3.5 g/dL (2.2-4.2); Glucose 101 mg/dL (70-99); High Density Lipoprotein 46 mg/dL; Low Density Lipoprotein Calc. 35 mg/dL; Potassium 4.5 mmol/L (3.3-5.1); Pro- Brain NATRIURETIC PEPTIDE 242 pg/mL (<=1800); Protein, Total 7.2 g/dL (5.9-8.4); Sodium Level 141 mmol/L (133-145); Total Bilirubin 0.41 mg/dL (0.00-1.30); Triglycerides 115 mg/dL; Very Low Density Lipoprotein 23 mg/dL (5-40); cholesterol:hdl ratio screen 2.28
== END | disposition home or self-care (01) ==
LOC: LAB 11:42
PROVIDERS: PCP Internal Medicine; Referring Provider Physician Assistant Medical; Visit Provider Physician Assistant Medical
DX: E78.2 Mixed hyperlipidemia (principal); R60.0 Localized edema; Z95.5 Presence of coronary angioplasty implant and graft; I10 Essential (primary) hypertension; I25.10 Atherosclerotic heart disease of native coronary artery without angina pectoris; R06.02 Shortness of breath
CPT/HCPCS: 36415; 80053; 80061; 83880; 85025; 85379

== ENCOUNTER → 2025-01-22 | Outpatient (CLI) | payer MEDICARE, SELFPAY ==
--- NOTE | 2025-01-22 10:55 | CT_ITS ---
PROCEDURE: CTA CHEST W/WO CONTRAST 01/22/2025 REASON FOR EXAM: R/O PE, ELEVATED D-DIMER AND LEG SWELLING TECHNIQUE: CTA axial imaging of the chest with intravenous contrast. Multiplanar and multisequence images were obtained. PATIENT PREPARATION: Per protocol CONTRAST: Isovue 370 VOLUME: 100 mL One or more dose reduction techniques were used (e.g., Automated exposure control, adjustment of the mA and/or kV according to patient size, use of iterative reconstruction technique). RADIATION DOSE SUMMARY: CTDlvol: 13 mGy DLP: 551.62 mGycm . COMPARISON: None FINDINGS: Hardware: None Lymph nodes: No significant adenopathy. Heart: Mild coronary artery calcifications. Thoracic Aorta: No thoracic aortic aneurysm or dissection. Pulmonary Vessels: No evidence of pulmonary embolism. Lungs and Airways: Unremarkable Pleura: Unremarkable Upper Abdomen: Status post cholecystectomy. Borderline splenomegaly. Bones: Degenerative changes of the thoracic spine. CT/CTA Chest W/WO Contrast IMPRESSION: No acute abnormality is seen. Reading Location: [place] [id number]
--- NOTE | 2025-01-22 11:36 | VDLE_ITS ---
Reason For Study Reason For Study: Elevated D Dimer RIGHT LEFT GSV is normal. GSV is normal. CFV is compressible, spontaneous, phasic, competent CFV is compressible, spontaneous, phasic, competent, and demonstrates normal augmentation. and demonstrates normal augmentation. FV is compressible, spontaneous, phasic, competent FV is compressible, spontaneous, phasic, competent and demonstrates normal augmentation. and demonstrates normal augmentation. POP V is compressible, spontaneous, phasic, competent POP V is compressible, spontaneous, phasic, competent and demonstrates normal augmentation. and demonstrates normal augmentation. T/P Trunk is compressible. T/P Trunk is compressible. PTV is compressible. PTV is compressible. RT PerV is compressible. LT PerV is compressible. VL/Venous Duplex US - Cedric Extrem Interpretation Summary Deep veins of the bilateral lower extremities are patent and compressible segme ntally. There is no evidence of bilateral lower extremity deep vein thrombosis. The bilateral great saphenous veins appea r patent and compressible segmentally. Ordering Physician: Christine Welsh Referring Physician: Meghana Segura M.D. Performed By: Fuad Nichols RVT
== END | disposition home or self-care (01) ==
LOC: CT 10:28
PROVIDERS: PCP Internal Medicine; Referring Provider Physician Assistant Medical; Visit Provider Physician Assistant Medical
DX: I74.3 Embolism and thrombosis of arteries of the lower extremities (principal); I70.92 Chronic total occlusion of artery of the extremities; R60.0 Localized edema; R79.89 Other specified abnormal findings of blood chemistry
CPT/HCPCS: 71275; 93970; Q9967

== ENCOUNTER → 2025-03-14 | Outpatient (CLI) | payer MEDICARE, SELFPAY ==
[2025-03-14 16:06] LABS: Albumin, Serum 3.7 g/dL (3.4-4.8); Anion Gap 10 (5-15); BUN 21 mg/dL (4-19); BUN/Creat Ratio 16.9 RATIO (10-20); Calcium,Total 10.5 mg/dL (7.6-11.0); Carbon Dioxide 27.6 mmol/L (21.0-32.0); Chloride 102 mmol/L (98-108); Glucose 161 mg/dL (70-99); Potassium 4.5 mmol/L (3.3-5.1)
== END | disposition home or self-care (01) ==
LOC: POLAB3 14:18
PROVIDERS: PCP Internal Medicine; Visit Provider Internal Medicine Nephrology
DX: N18.32 Chronic kidney disease, stage 3b (principal)
CPT/HCPCS: 36415; 80069

== ENCOUNTER → 2025-05-13 | Outpatient (CLI) | payer MEDICARE, SELFPAY ==
[2025-05-13 13:24] LABS: Creatinine, Urine (random) 74.80 mg/dL (28.00-217.00); Microalbumin,Random Urine 27.3 mg/L (<20 mg/L)
[2025-05-13 13:39] LABS: Albumin, Serum 3.5 g/dL (3.4-4.8); Anion Gap 10 (5-15); BUN 21 mg/dL (4-19); BUN/Creat Ratio 16.5 RATIO (10-20); Calcium,Total 10.3 mg/dL (7.6-11.0); Carbon Dioxide 26.9 mmol/L (21.0-32.0); Chloride 103 mmol/L (98-108); Glucose 178 mg/dL (70-99); Potassium 4.4 mmol/L (3.3-5.1); Vitamin D,25 Hydroxy 71.2 ng/mL (30-100)
== END | disposition home or self-care (01) ==
LOC: POLAB3 12:40
PROVIDERS: PCP Internal Medicine; Visit Provider Internal Medicine Nephrology
DX: E11.22 Type 2 diabetes mellitus with diabetic chronic kidney disease (principal); N18.32 Chronic kidney disease, stage 3b; E83.52 Hypercalcemia
CPT/HCPCS: 36415; 80069; 82043; 82306; 82570

== ENCOUNTER → 2025-05-21 | Outpatient (CLI) | payer MEDICARE, SELFPAY ==
--- NOTE | 2025-05-21 13:37 | ECHOD_ITS ---
Reason For Study Reason For Study: EDEMA Procedure This was a 2D Doppler, Color Flow transthoracic echocardiogram. Myocardial strain analysis was performed in this exam to aid in the assessment of cardiac function. Technically difficult study due to arrhythmia. Exam performed in department. Left Ventricle Normal LV size. Mild concentric left ventricular hypertrophy. Left ventricular systolic function is normal. The left ventricular ejection fraction is 60 %. Stage 1 diastolic dysfunction. No regional wall motion abnormalities noted. Right Ventricle Normal RV size. Normal systolic function. Atria The left and right atria are normal. Mitral Valve The mitral valve is structurally normal. No prolapse or stenosis seen. Trivial mitral valve insufficiency. Tricuspid Valve Normal tricuspid valve. Trivial tricuspid valve insufficiency. Unable to estimate RV systolic pressure due to insufficient tricuspid regurgitant envelope. Aortic Valve Trisinus/trileaflet aortic valve. Pulmonic Valve Normal pulmonic valve. Great Vessels Normal sized aortic root. Pericardium/Pleural Epicardial fat. No pericardial effusion. MMode/2D Measurements & Calculations LVIDd: 4.7 cm IVSd: 1.1 cm LVOT diam: 1.9 cm LVIDs: 3.2 cm LVPWd: 1.1 cm LVOT area: 2.9 cm2 RVDd: 3.6 cm FS: 32.5 % asc Aorta Diam: 3.2 cm LAV(MOD-bp): 43.1 ml LVAd ap4: 22.5 cm2 LAV(MOD-bp) Indexed: 20.5 ml/m2 LVLd ap4: 7.0 cm LAV(MOD-sp2): 32.6 ml EDV(MOD-sp4): 60.9 ml LAV(MOD-sp4): 46.4 ml EDV(sp4-el): 61.7 ml LVAs ap4: 12.2 cm2 LVLs ap4: 5.8 cm ESV(MOD-sp4): 22.5 ml ESV(sp4-el): 22.0 ml EF(MOD-sp4): 63.0 % EF(sp4-el): 64.3 % LVAd ap2: 22.8 cm2 SV(MOD-sp4): 38.3 ml SV(MOD-sp2): 44.5 ml LVLd ap2: 6.4 cm SI(MOD-sp4): 18.2 ml/m2 SI(MOD-sp2): 21.1 ml/m2 EDV(MOD-sp2): 67.8 ml EDV(sp2-el): 69.5 ml LVAs ap2: 12.2 cm2 LVLs ap2: 5.7 cm ESV(MOD-sp2): 23.4 ml ESV(sp2-el): 22.3 ml EF(MOD-sp2): 65.6 % SV(sp4-el): 39.7 ml Ao sinus diam: 3.[address] Junction: 2.8 cm LA dimension(2D): 3.3 cm LA A4 area: 17.4 cm2 RA A4 area: 12.3 cm2 TAPSE: 2.1 cm Time Measurements MV dec time: 0.17 sec Doppler Measurements & Calculations MV E max leighton: 78.3 cm/sec Lat Peak E' Le[place]on: 9.0 cm/sec Med Peak E' Leighton: 9.8 cm/sec MV A max leighton: 99.1 cm/sec E/E' lat: 8.7 E/E' med: 8.0 MV E/A: 0.79 MV dec slope: 463.0 cm/sec2 Ao V2 max: 134.6 cm/sec LV V1 max: 107.3 cm/sec Ao max P.3 mmHg LV V1 max P.6 mmHg Ao V2 mean: 93.6 cm/sec LV V1 mean P.5 mmHg Ao mean P.9 mmHg LV V1 mean: 72.8 cm/sec Ao V2 VTI: 33.9 cm LV V1 VTI: 25.2 cm AV (velocity ratio): 0.74 SHERRIE(I,D): 2.2 cm2 SHERRIE(V,D): 2.3 cm2 SV(LVOT): 73.6 ml PA V2 max: 86.6 cm/sec ECHO/Echo Complete Interpretation Summary The left ventricular ejection fraction is 60 %. Stage 1 diastolic dysfunction. LV global longitudinal strain is -16.7% which is borderline. Structually normal valves. Ordering Physician: Meghana Segura Referring Physician: Meghana Segura Performed By: Marcella Palmer RDCS
== END | disposition home or self-care (01) ==
LOC: CVS 13:36
PROVIDERS: PCP Internal Medicine; Referring Provider Internal Medicine; Visit Provider Internal Medicine
DX: R60.0 Localized edema (principal)
CPT/HCPCS: 93306